=== PATIENT | female | born 1950 | race African-American/Black ===

== ENCOUNTER 2017-12-19 09:35 | Inpatient (IN) ==
[2017-12-19] MEDS ORDERED: SODIUM CHLORIDE 0.9% 250 ML IV STA ×3 (10:00→11:20)
[2017-12-19 10:23] LABS: Basophils % 0.5 % (0.0-0.8); Eosinophils # 0.3 10*3/uL (0.0-0.87); Eosinophils % 5.1 % (0.00-10.9); Hematocrit 28.2 VOL% (35.7-47.0); Hemoglobin 8.7 GM/DL (12.0-16.0); Immature Granulocytes % 0.5 %; Immature Granulocytes Absolute 0.03 #; Lymphocytes # 1.6 10*3/uL (1.4-4.0); Lymphocytes % 24.7 % (21.3-54.2); Mean Corpuscular HGB Conc 30.9 GM/DL (32-36); Mean Corpuscular Hemoglobin 30 PG (27-34); Mean Corpuscular Volume 97.6 FL (87-102); Mean Platelet Volume 11.1 FL (9.6-12.0); Monocytes # 0.5 10*3/uL (0.11-0.8); Monocytes % 8.1 % (1.7-12.7); Neutrophils # 4.1 10*3/uL (1.4-7.4); Neutrophils % 61.1 % (38.7-73.9); Platelet Count 161 T/CUMM (130-400); Red Blood Count 2.89 MC/CUMM (3.8-5.5); Red Cell Distribution Width 14.8 % (9.3-17.3); White Blood Count 6.6 T/CUMM (4-12)
[2017-12-19 10:35] LABS: Ammonia 33 UMOL/L (11-32); INR 1.1; PT Patient Result 11.1 SECS
[2017-12-19 10:39] LABS: Alanine Aminotransferase 14 U/L (13-56); Albumin 2.3 G/DL (3.4-5.0); Alkaline Phosphatase 84 U/L (45-117); Aspartate Amino Transferase 12 U/L (0-37); Bilirubin,Total < 0.39 MG/DL (0.2-1.0); Blood Urea Nitrogen 24 MG/DL (7-18); Calcium 7.8 MG/DL (8.5-10.1); Glucose 177 MG/DL (74-106); Osmolality,Calculated 288.3 MOS/KG (273-304); Potassium 3.4 MMOL/L (3.5-5.1); Sodium 141 MMOL/L (136-145); Total Protein 5.1 G/DL (6.4-8.3)
[2017-12-19 10:40] LABS: Lactic Acid 2.4 MMOL/L (0.4-2.0)
[2017-12-19 10:46] LABS: Partial Thromboplastin Time 62.4 SECS (0-40)
[2017-12-19] MEDS ORDERED: DEXTROSE 50% 25 GM/50 ML VIAL IV PRN (12:41)
[2017-12-19] MEDS ORDERED: GLUCAGON 1 MG VIAL IM PRN (12:41)
[2017-12-19] MEDS ORDERED: ONDANSETRON 4 MG/2 ML VIAL IV PRN (12:41)
[2017-12-19] MEDS ORDERED: DOCUSATE SODIUM 100 MG CAPSULE PO PRN (12:41)
[2017-12-19] MEDS ORDERED: ACETAMINOPHEN 325 MG TABLET PO PRN (12:41)
[2017-12-19] MEDS ORDERED: LORazepam 2 MG/1 ML VIAL IV PRN (12:53)
[2017-12-19] MEDS ORDERED: DOPamine 800 MG/250 ML PREMIX IV PRN (12:54)
[2017-12-19] MEDS ORDERED: POTASSIUM CHLORIDE 20 MEQ TABLET PO ONE (13:00)
[2017-12-19] MEDS ORDERED: EPOETIN ALFA 10,000 UNIT/1 ML VIAL IV PRN (14:33)
[2017-12-19] MEDS: NICOTINE 21 MG/24 HR PATCH TRANSDERM SCH (17:28)
[2017-12-19] MEDS: INSULIN LISPRO 100 UNIT/ML SUBCUT SCH ×2 (17:28→20:23)
[2017-12-20 03:39] LABS: Basophils % 0.2 % (0.0-0.8); Eosinophils # 0.2 10*3/uL (0.0-0.87); Eosinophils % 3.8 % (0.00-10.9); Hematocrit 21.2 VOL% (35.7-47.0); Immature Granulocytes % 0.6 %; Immature Granulocytes Absolute 0.03 #; Lymphocytes # 1.6 10*3/uL (1.4-4.0); Lymphocytes % 30.5 % (21.3-54.2); Mean Corpuscular HGB Conc 30.2 GM/DL (32-36); Mean Corpuscular Hemoglobin 30 PG (27-34); Mean Corpuscular Volume 97.7 FL (87-102); Monocytes # 0.6 10*3/uL (0.11-0.8); Monocytes % 10.7 % (1.7-12.7); Neutrophils # 2.8 10*3/uL (1.4-7.4); Neutrophils % 54.2 % (38.7-73.9); Platelet Count 109 T/CUMM (130-400); Red Blood Count 2.17 MC/CUMM (3.8-5.5); Red Cell Distribution Width 15.1 % (9.3-17.3); White Blood Count 5.2 T/CUMM (4-12)
[2017-12-20 03:53] LABS: Hemoglobin 6.4 GM/DL (12.0-16.0)
[2017-12-20] MEDS ORDERED: SODIUM CHLORIDE 0.9% 1,000 ML IV PRN (03:59)
[2017-12-20 04:14] LABS: Alanine Aminotransferase 12 U/L (13-56); Albumin 2.2 G/DL (3.4-5.0); Alkaline Phosphatase 70 U/L (45-117); Aspartate Amino Transferase 6 U/L (0-37); Bilirubin,Total < 0.39 MG/DL (0.2-1.0); Blood Urea Nitrogen 32 MG/DL (7-18); Calcium 7.7 MG/DL (8.5-10.1); Glucose 77 MG/DL (74-106); Osmolality,Calculated 288.1 MOS/KG (273-304); Sodium 142 MMOL/L (136-145); Thyroid Stimulating Hormone 0.882 uIU/ml (0.358-3.74); Total Protein 4.6 G/DL (6.4-8.3)
[2017-12-20] MEDS: INSULIN LISPRO 100 UNIT/ML SUBCUT SCH ×4 (07:40→20:21)
[2017-12-20] MEDS ORDERED: PANTOPRAZOLE 40 MG TABLET PO SCH (09:00)
[2017-12-20] MEDS: NICOTINE 21 MG/24 HR PATCH TRANSDERM SCH (09:41)
[2017-12-20] MEDS ORDERED: ACETAMINOPHEN 325 MG TABLET PO PRN (10:43)
[2017-12-20] MEDS: LACTULOSE 20 GM/30 ML UDCUP PO SCH (11:02)
[2017-12-20] MEDS: POTASSIUM CHLORIDE 10 MEQ TABLET PO SCH (11:03)
[2017-12-20] MEDS: PANTOPRAZOLE 40 MG TABLET PO SCH (11:03)
[2017-12-20] MEDS: LEVOTHYROXINE 50 MCG TABLET PO SCH (11:03)
[2017-12-20] MEDS: DOCUSATE SODIUM 100 MG CAPSULE PO SCH (11:03)
[2017-12-20] MEDS: ASPIRIN EC 81 MG TABLET PO SCH (11:03)
[2017-12-20] MEDS: ATORVASTATIN 10 MG TABLET PO SCH (11:04)
[2017-12-20] MEDS: FOLIC ACID 1 MG TABLET PO SCH (11:04)
[2017-12-20 19:15] LABS: Hematocrit 24.3 VOL% (35.7-47.0); Hemoglobin 7.9 GM/DL (12.0-16.0)
[2017-12-20] MEDS ORDERED: MIRTAZAPINE 15 MG TABLET PO SCH (20:00)
[2017-12-21 04:31] LABS: Basophils % 0.1 % (0.0-0.8); Eosinophils # 0.1 10*3/uL (0.0-0.87); Eosinophils % 1.3 % (0.00-10.9); Hematocrit 24.3 VOL% (35.7-47.0); Hemoglobin 7.7 GM/DL (12.0-16.0); Immature Granulocytes % 0.5 %; Immature Granulocytes Absolute 0.04 #; Lymphocytes # 1.2 10*3/uL (1.4-4.0); Lymphocytes % 16.1 % (21.3-54.2); Mean Corpuscular HGB Conc 31.7 GM/DL (32-36); Mean Corpuscular Hemoglobin 29 PG (27-34); Mean Corpuscular Volume 92.4 FL (87-102); Mean Platelet Volume 10.6 FL (9.6-12.0); Monocytes # 0.7 10*3/uL (0.11-0.8); Monocytes % 9.2 % (1.7-12.7); Neutrophils # 5.5 10*3/uL (1.4-7.4); Neutrophils % 72.8 % (38.7-73.9); Red Blood Count 2.63 MC/CUMM (3.8-5.5); Red Cell Distribution Width 15.9 % (9.3-17.3); White Blood Count 7.6 T/CUMM (4-12)
[2017-12-21 04:35] LABS: Platelet Count 87 T/CUMM (130-400)
[2017-12-21 04:58] LABS: Hypochromasia 1+; Ovalocytes Slight; Platelet Estimate Decreased
[2017-12-21] MEDS ORDERED: LINACLOTIDE 145 MCG CAPSULE PO SCH (07:30)
[2017-12-21] MEDS ORDERED: DIGOXIN 0.5 MG/2 ML AMP ONE (08:08)
[2017-12-21] MEDS ORDERED: VANCOMYCIN INJ 1,000 MG in SODIUM CHLORIDE 0.9% 250 ML IV ONE (08:20)
[2017-12-21] MEDS ORDERED: DIGOXIN 0.5 MG/2 ML AMP IV ONE (08:20)
[2017-12-21] MEDS ORDERED: NOREPINEPHRINE 8 MG in SODIUM CHLORIDE 0.9% 242 ML IV PRN (08:32)
[2017-12-21] MEDS: INSULIN LISPRO 100 UNIT/ML SUBCUT SCH ×4 (09:07→20:39)
[2017-12-21 09:26] LABS: Calcium 7.4 MG/DL (8.5-10.1); Osmolality,Calculated 279.4 MOS/KG (273-304); Potassium 4.1 MMOL/L (3.5-5.1)
[2017-12-21] MEDS ORDERED: SODIUM CHLORIDE 0.9% 1,000 ML IV SCH (10:30)
[2017-12-21] MEDS: POTASSIUM CHLORIDE 10 MEQ TABLET PO SCH ×2 (11:07→11:18)
[2017-12-21] MEDS: DOCUSATE SODIUM 100 MG CAPSULE PO SCH ×2 (11:07→11:18)
[2017-12-21] MEDS: LEVOTHYROXINE 50 MCG TABLET PO SCH ×2 (11:07→11:19)
[2017-12-21] MEDS: LACTULOSE 20 GM/30 ML UDCUP PO SCH ×2 (11:07→11:18)
[2017-12-21] MEDS: ATORVASTATIN 10 MG TABLET PO SCH ×2 (11:08→11:18)
[2017-12-21] MEDS: FOLIC ACID 1 MG TABLET PO SCH ×2 (11:08→11:18)
[2017-12-21] MEDS: ASPIRIN EC 81 MG TABLET PO SCH ×2 (11:08→11:17)
[2017-12-21] MEDS: PANTOPRAZOLE 40 MG TABLET PO SCH ×2 (11:08→11:18)
[2017-12-21] MEDS: NICOTINE 21 MG/24 HR PATCH TRANSDERM SCH (11:09)
[2017-12-21] MEDS ORDERED: DIGOXIN 0.25 MG TABLET PO SCH (13:00)
[2017-12-21 19:33] LABS: Hematocrit 26.4 VOL% (35.7-47.0); Hemoglobin 8.3 GM/DL (12.0-16.0)
[2017-12-21] MEDS ORDERED: MIRTAZAPINE 15 MG TABLET PO SCH (20:00)
[2017-12-22 04:56] LABS: Basophils % 0.1 % (0.0-0.8); Eosinophils # 0.1 10*3/uL (0.0-0.87); Eosinophils % 0.9 % (0.00-10.9); Hematocrit 23.4 VOL% (35.7-47.0); Hemoglobin 7.5 GM/DL (12.0-16.0); Immature Granulocytes % 0.6 %; Immature Granulocytes Absolute 0.05 #; Lymphocytes # 1.1 10*3/uL (1.4-4.0); Mean Corpuscular HGB Conc 32.1 GM/DL (32-36); Mean Corpuscular Hemoglobin 29 PG (27-34); Mean Corpuscular Volume 90.7 FL (87-102); Mean Platelet Volume 11.1 FL (9.6-12.0); Monocytes # 0.8 10*3/uL (0.11-0.8); Monocytes % 8.9 % (1.7-12.7); Neutrophils # 6.9 10*3/uL (1.4-7.4); Neutrophils % 77.5 % (38.7-73.9); Platelet Count 78 T/CUMM (130-400); Red Blood Count 2.58 MC/CUMM (3.8-5.5); Red Cell Distribution Width 16.6 % (9.3-17.3); White Blood Count 8.9 T/CUMM (4-12)
[2017-12-22 05:29] LABS: Bilirubin,Total 1.2 MG/DL (0.2-1.0); Osmolality,Calculated 282.5 MOS/KG (273-304); Potassium 4.4 MMOL/L (3.5-5.1); Total Protein 4.9 G/DL (6.4-8.3)
[2017-12-22 05:34] LABS: Hypochromasia 1+; Ovalocytes Slight; Platelet Estimate Decreased
[2017-12-22] MEDS: INSULIN LISPRO 100 UNIT/ML SUBCUT SCH ×4 (09:32→21:08)
[2017-12-22] MEDS: FOLIC ACID 1 MG TABLET PO SCH (10:08)
[2017-12-22] MEDS: POTASSIUM CHLORIDE 10 MEQ TABLET PO SCH (10:08)
[2017-12-22] MEDS: ASPIRIN EC 81 MG TABLET PO SCH (10:08)
[2017-12-22] MEDS: ATORVASTATIN 10 MG TABLET PO SCH (10:09)
[2017-12-22] MEDS: NICOTINE 21 MG/24 HR PATCH TRANSDERM SCH (10:09)
[2017-12-22] MEDS: LEVOTHYROXINE 50 MCG TABLET PO SCH (10:09)
[2017-12-22] MEDS: DOCUSATE SODIUM 100 MG CAPSULE PO SCH (10:10)
[2017-12-22] MEDS: PANTOPRAZOLE 40 MG TABLET PO SCH (10:10)
[2017-12-22] MEDS: LACTULOSE 20 GM/30 ML UDCUP PO SCH (10:10)
[2017-12-22] MEDS ORDERED: LEVOFLOXACIN 250 MG TABLET PO SCH (10:30)
[2017-12-22] MEDS: VANCOMYCIN 50 MG/ML 60 ML/BOTTLE PO SCH (17:41)
[2017-12-23] MEDS: VANCOMYCIN 50 MG/ML 60 ML/BOTTLE PO SCH ×4 (00:20→17:21)
[2017-12-23 05:44] LABS: Basophils % 0.1 % (0.0-0.8); Eosinophils # 0.1 10*3/uL (0.0-0.87); Eosinophils % 1.7 % (0.00-10.9); Hematocrit 24.3 VOL% (35.7-47.0); Hemoglobin 7.7 GM/DL (12.0-16.0); Immature Granulocytes % 0.4 %; Immature Granulocytes Absolute 0.03 #; Lymphocytes # 1.1 10*3/uL (1.4-4.0); Lymphocytes % 13.9 % (21.3-54.2); Mean Corpuscular HGB Conc 31.7 GM/DL (32-36); Mean Corpuscular Hemoglobin 29 PG (27-34); Mean Corpuscular Volume 91.7 FL (87-102); Mean Platelet Volume 11.4 FL (9.6-12.0); Monocytes # 0.6 10*3/uL (0.11-0.8); Monocytes % 7.7 % (1.7-12.7); Neutrophils % 76.2 % (38.7-73.9); Platelet Count 87 T/CUMM (130-400); Red Blood Count 2.65 MC/CUMM (3.8-5.5); White Blood Count 7.8 T/CUMM (4-12)
[2017-12-23 06:12] LABS: Hypochromasia Slight; Platelet Estimate Decreased
[2017-12-23 06:17] LABS: Calcium 7.3 MG/DL (8.5-10.1); Osmolality,Calculated 285.7 MOS/KG (273-304); Potassium 4.9 MMOL/L (3.5-5.1)
[2017-12-23] MEDS: LACTULOSE 20 GM/30 ML UDCUP PO SCH (08:12)
[2017-12-23] MEDS: DOCUSATE SODIUM 100 MG CAPSULE PO SCH (08:12)
[2017-12-23] MEDS: INSULIN LISPRO 100 UNIT/ML SUBCUT SCH ×3 (08:12→15:51)
[2017-12-23] MEDS: ATORVASTATIN 10 MG TABLET PO SCH (08:43)
[2017-12-23] MEDS: NICOTINE 21 MG/24 HR PATCH TRANSDERM SCH (08:43)
[2017-12-23] MEDS: POTASSIUM CHLORIDE 10 MEQ TABLET PO SCH (08:43)
[2017-12-23] MEDS: ASPIRIN EC 81 MG TABLET PO SCH (08:44)
[2017-12-23] MEDS: FOLIC ACID 1 MG TABLET PO SCH (08:44)
[2017-12-23] MEDS: LEVOTHYROXINE 50 MCG TABLET PO SCH (08:44)
[2017-12-23] MEDS: PANTOPRAZOLE 40 MG TABLET PO SCH (08:44)
[2017-12-23] MEDS ORDERED: DIGOXIN 0.125 MG TABLET PO SCH (10:00)
[2017-12-24] MEDS: INSULIN LISPRO 100 UNIT/ML SUBCUT SCH ×4 (00:27→16:08)
[2017-12-24] MEDS: VANCOMYCIN 50 MG/ML 60 ML/BOTTLE PO SCH ×4 (04:44→16:24)
[2017-12-24 05:27] LABS: Basophils % 0.2 % (0.0-0.8); Eosinophils # 0.2 10*3/uL (0.0-0.87); Hematocrit 21.6 VOL% (35.7-47.0); Hemoglobin 6.9 GM/DL (12.0-16.0); Immature Granulocytes % 0.6 %; Immature Granulocytes Absolute 0.03 #; Lymphocytes # 0.9 10*3/uL (1.4-4.0); Lymphocytes % 16.3 % (21.3-54.2); Mean Corpuscular HGB Conc 31.9 GM/DL (32-36); Mean Corpuscular Hemoglobin 29 PG (27-34); Mean Corpuscular Volume 91.9 FL (87-102); Mean Platelet Volume 11.9 FL (9.6-12.0); Monocytes # 0.4 10*3/uL (0.11-0.8); Neutrophils # 3.9 10*3/uL (1.4-7.4); Neutrophils % 72.9 % (38.7-73.9); Red Blood Count 2.35 MC/CUMM (3.8-5.5); Red Cell Distribution Width 15.7 % (9.3-17.3); White Blood Count 5.3 T/CUMM (4-12)
[2017-12-24 05:30] LABS: Platelet Count 91 T/CUMM (130-400)
[2017-12-24 05:45] LABS: Hypochromasia 1+; Microcytosis 1+; Ovalocytes Few; Platelet Estimate Decreased
[2017-12-24 05:46] LABS: Anisocytosis 1+
[2017-12-24 05:53] LABS: Calcium 7.3 MG/DL (8.5-10.1); Osmolality,Calculated 289.7 MOS/KG (273-304); Potassium 4.4 MMOL/L (3.5-5.1)
[2017-12-24] MEDS ORDERED: HEPARIN 5,000 UNIT/1 ML VIAL ONE (07:42)
[2017-12-24] MEDS ORDERED: LIDOCAINE 1% 20 ML VIAL ONE (07:42)
[2017-12-24] MEDS ORDERED: BUPIVACAINE MPF 0.25% 30 ML VIAL ONE (07:42)
[2017-12-24] MEDS: FOLIC ACID 1 MG TABLET PO SCH (08:18)
[2017-12-24] MEDS: LEVOTHYROXINE 50 MCG TABLET PO SCH (08:18)
[2017-12-24] MEDS: NICOTINE 21 MG/24 HR PATCH TRANSDERM SCH (08:18)
[2017-12-24] MEDS: PANTOPRAZOLE 40 MG TABLET PO SCH (08:18)
[2017-12-24] MEDS: ATORVASTATIN 10 MG TABLET PO SCH (08:18)
[2017-12-24] MEDS: POTASSIUM CHLORIDE 10 MEQ TABLET PO SCH (08:18)
[2017-12-24] MEDS: ASPIRIN EC 81 MG TABLET PO SCH (08:18)
[2017-12-24] MEDS ORDERED: SODIUM CHLORIDE 0.9% 250 ML IV SCH (08:30)
[2017-12-24 09:04] LABS: Hematocrit 22.2 VOL% (35.7-47.0); Hemoglobin 7.2 GM/DL (12.0-16.0)
[2017-12-24] MEDS ORDERED: PROPOFOL 200 MG/20 ML VIAL IV ONE (09:10)
[2017-12-24 11:53] VITALS: BP 154/89
[2017-12-24] MEDS ORDERED: HEPARIN 10,000 UNIT/10 ML VIAL IV PRN (15:13)
[2017-12-24 17:55] LABS: Hematocrit 36.3 VOL% (35.7-47.0); Hemoglobin 11.6 GM/DL (12.0-16.0)
== END 2017-12-24 18:25 | DRG 312 ==
LOC: EDUNIT# → EDBD → N.ED 09:35 → N.EDINP 12:41 → SUATTDRO 12:41 → N.ICU 13:26 → N.5E 12-20 10:34 → N.ICU 12-21 08:17 → N.5E 12-22 13:29
PROVIDERS: ADMIT Family Medicine; ATTEND Internal Medicine

== ENCOUNTER 2020-05-12 18:27 | Inpatient (IN) ==
[2020-05-12 19:28] LABS: Eosinophils # 0.5 10*3/uL (0.0-0.87); Eosinophils % 10.2 % (0.00-10.9); Hematocrit 18.4 VOL% (35.7-47.0); Immature Granulocytes % 0.2 %; Immature Granulocytes Absolute 0.01 #; Lymphocytes # 1.3 10*3/uL (1.4-4.0); Lymphocytes % 27.9 % (21.3-54.2); Mean Corpuscular HGB Conc 31.5 GM/DL (32-36); Mean Corpuscular Volume 96.3 FL (87-102); Mean Platelet Volume 11.1 FL (9.6-12.0); Monocytes % 7.1 % (1.7-12.7); Neutrophils % 54.6 % (38.7-73.9); Platelet Count 170 T/CUMM (130-400); Red Blood Count 1.91 MC/CUMM (3.8-5.5); Red Cell Distribution Width 14.5 % (9.3-17.3); White Blood Count 4.6 T/CUMM (4-12)
[2020-05-12 19:51] LABS: Albumin 2.5 G/DL (3.4-5.0); Bilirubin,Total 0.4 MG/DL (0.2-1.0); Calcium 8.1 MG/DL (8.5-10.1); Osmolality,Calculated 289.1 MOS/KG (273-304); Total Protein 5.9 G/DL (5.0-7.5)
[2020-05-12 20:17] LABS: Hemoglobin 5.8 GM/DL (12.0-16.0)
[2020-05-12] MEDS ORDERED: hydrALAZINE 20 MG/1 ML VIAL IV STA (20:20)
[2020-05-12] MEDS ORDERED: hydrALAZINE 20 MG/1 ML VIAL ONE (20:21)
[2020-05-12 21:06] LABS: Eosinophils 4 % (0-10); Lymphocytes 26 % (20-55); Segmented Neutrophils 68 % (50-85); Total Cells Counted 100
[2020-05-12 21:07] LABS: Platelet Estimate Adequate
[2020-05-12 21:08] LABS: Hypochromasia Slight
[2020-05-12 21:09] LABS: Anisocytosis 1+; Ovalocytes Few
[2020-05-12] MEDS ORDERED: LABETALOL 20 MG/4 ML SYRINGE IV ONE ×2 (22:35→22:40)
[2020-05-12] MEDS ORDERED: SODIUM CHLORIDE 0.9% 1,000 ML IV PRN (22:49)
[2020-05-12] MEDS ORDERED: DEXTROSE 50% 25 GM/50 ML VIAL IV PRN (22:53)
[2020-05-12] MEDS ORDERED: GLUCAGON 1 MG VIAL IM PRN (22:53)
[2020-05-12] MEDS ORDERED: hydrALAZINE 20 MG/1 ML VIAL IV PRN (22:58)
[2020-05-12] MEDS ORDERED: DOCUSATE SODIUM 100 MG CAPSULE PO PRN (22:58)
[2020-05-12] MEDS ORDERED: ONDANSETRON 4 MG/2 ML VIAL IV PRN (22:58)
[2020-05-13] MEDS: LEVOTHYROXINE 50 MCG TABLET PO SCH (05:59)
[2020-05-13 06:01] LABS: Basophils % 0.3 % (0.0-0.8); Eosinophils # 0.5 10*3/uL (0.0-0.87); Eosinophils % 7.9 % (0.00-10.9); Immature Granulocytes % 0.3 %; Immature Granulocytes Absolute 0.02 #; Lymphocytes # 1.7 10*3/uL (1.4-4.0); Lymphocytes % 28.8 % (21.3-54.2); Mean Corpuscular HGB Conc 31.3 GM/DL (32-36); Mean Corpuscular Volume 93.9 FL (87-102); Mean Platelet Volume 11.4 FL (9.6-12.0); Monocytes % 8.9 % (1.7-12.7); Neutrophils % 53.8 % (38.7-73.9); Platelet Count 164 T/CUMM (130-400); Red Cell Distribution Width 15.8 % (9.3-17.3)
[2020-05-13 06:12] LABS: Hemoglobin 7.2 GM/DL (12.0-16.0); Red Blood Count 2.45 MC/CUMM (3.8-5.5)
[2020-05-13 06:14] LABS: Albumin 2.3 G/DL (3.4-5.0); Bilirubin,Total 1.4 MG/DL (0.2-1.0); Osmolality,Calculated 290.1 MOS/KG (273-304); Potassium 3.6 MMOL/L (3.5-5.1); Total Protein 5.5 G/DL (5.0-7.5)
[2020-05-13] MEDS ORDERED: POTASSIUM CHLORIDE RIDER 10 MEQ in PREMIX 1 EACH IV PRN (08:49)
[2020-05-13] MEDS: PANTOPRAZOLE 40 MG VIAL IV SCH ×2 (08:52→20:50)
[2020-05-13] MEDS: ATORVASTATIN 10 MG TABLET PO SCH (08:52)
[2020-05-13] MEDS: MULTIVITAMIN (BEROCCA) TABLET PO SCH (08:52)
[2020-05-13] MEDS: levETIRAcetam 500 MG TABLET PO SCH (08:52)
[2020-05-13] MEDS: FOLIC ACID 1 MG TABLET PO SCH (08:53)
[2020-05-13] MEDS: carvediloL 6.25 MG TABLET PO SCH ×2 (08:53→19:01)
[2020-05-13] MEDS: MEGESTROL 400 MG/10 ML UDCUP PO SCH ×2 (08:53→20:50)
[2020-05-13] MEDS: traZODone 50 MG TABLET PO SCH ×2 (08:53→20:51)
[2020-05-13] MEDS: INSULIN LISPRO 100 UNIT/ML SUBCUT SCH ×4 (08:54→21:04)
[2020-05-13] MEDS ORDERED: SODIUM CHLORIDE 0.9% 1,000 ML IV SCH (12:00)
[2020-05-13] MEDS ORDERED: LIDOCAINE 2% 5 ML VIAL ONE (13:05)
[2020-05-13] MEDS ORDERED: ETOMIDATE 20 MG/10 ML VIAL IV ONE (13:05)
[2020-05-13] MEDS ORDERED: POTASSIUM PHOS/SOD PHOS 250 MG TABLET PO SCH (17:00)
[2020-05-13 17:20] LABS: Hepatitis B Core IgM Quant < 0.05 Index; Hepatitis B Surface Ag Quant < 0.10 Index; Hepatitis B Surface Ag Result Non-Reactive (NonReactive); Hepatitis C Virus Ab Quant 0.04 Index; Hepatitis C Virus Ab Result Non-Reactive (NonReactive)
[2020-05-13] MEDS: DIGOXIN 0.125 MG TABLET PO SCH (19:01)
[2020-05-13] MEDS: MIRTAZAPINE 15 MG TABLET PO SCH (20:50)
[2020-05-13] MEDS: levETIRAcetam 250 MG TABLET PO SCH (20:51)
[2020-05-13] MEDS: LOSARTAN 50 MG TABLET PO SCH (20:52)
[2020-05-14] MEDS: LEVOTHYROXINE 50 MCG TABLET PO SCH (06:14)
[2020-05-14 06:24] LABS: Basophils % 0.2 % (0.0-0.8); Eosinophils # 0.3 10*3/uL (0.0-0.87); Eosinophils % 5.9 % (0.00-10.9); Hematocrit 19.6 VOL% (35.7-47.0); Immature Granulocytes % 0.2 %; Immature Granulocytes Absolute 0.01 #; Lymphocytes # 1.1 10*3/uL (1.4-4.0); Lymphocytes % 26.4 % (21.3-54.2); Mean Corpuscular HGB Conc 32.1 GM/DL (32-36); Mean Corpuscular Volume 91.6 FL (87-102); Monocytes % 8.5 % (1.7-12.7); Neutrophils % 58.8 % (38.7-73.9); Platelet Count 109 T/CUMM (130-400); Red Blood Count 2.14 MC/CUMM (3.8-5.5); Red Cell Distribution Width 15.9 % (9.3-17.3); White Blood Count 4.3 T/CUMM (4-12)
[2020-05-14 06:32] LABS: Hemoglobin 6.3 GM/DL (12.0-16.0)
[2020-05-14] MEDS ORDERED: SODIUM CHLORIDE 0.9% 1,000 ML IV PRN ×2 (06:40→09:55)
[2020-05-14 07:03] LABS: Platelet Estimate Adequate; Poikilocytosis Slight
[2020-05-14 07:04] LABS: Anisocytosis 2+; Burr Cells Few
[2020-05-14 07:12] LABS: Albumin 2.1 G/DL (3.4-5.0); Bilirubin,Total 0.7 MG/DL (0.2-1.0); Osmolality,Calculated 281.5 MOS/KG (273-304); Potassium 3.4 MMOL/L (3.5-5.1); Total Protein 5.1 G/DL (5.0-7.5)
[2020-05-14] MEDS: INSULIN LISPRO 100 UNIT/ML SUBCUT SCH ×4 (08:50→20:03)
[2020-05-14] MEDS: PANTOPRAZOLE 40 MG VIAL IV SCH ×2 (09:01→20:02)
[2020-05-14] MEDS: FOLIC ACID 1 MG TABLET PO SCH (09:02)
[2020-05-14] MEDS: levETIRAcetam 500 MG TABLET PO SCH (09:02)
[2020-05-14] MEDS: traZODone 50 MG TABLET PO SCH ×2 (09:02→20:03)
[2020-05-14] MEDS: ATORVASTATIN 10 MG TABLET PO SCH (09:02)
[2020-05-14] MEDS: MEGESTROL 400 MG/10 ML UDCUP PO SCH ×2 (09:02→20:02)
[2020-05-14] MEDS: MULTIVITAMIN (BEROCCA) TABLET PO SCH (09:02)
[2020-05-14] MEDS: carvediloL 6.25 MG TABLET PO SCH ×2 (09:02→16:00)
[2020-05-14 15:35] LABS: Hematocrit 24.4 VOL% (35.7-47.0); Hemoglobin 7.8 GM/DL (12.0-16.0)
[2020-05-14] MEDS: LOSARTAN 50 MG TABLET PO SCH (20:02)
[2020-05-14] MEDS: levETIRAcetam 250 MG TABLET PO SCH (20:02)
[2020-05-14] MEDS: MIRTAZAPINE 15 MG TABLET PO SCH (20:03)
[2020-05-15] MEDS: LEVOTHYROXINE 50 MCG TABLET PO SCH (05:20)
[2020-05-15 06:02] LABS: Basophils % 0.2 % (0.0-0.8); Eosinophils # 0.3 10*3/uL (0.0-0.87); Eosinophils % 6.2 % (0.00-10.9); Hematocrit 23.3 VOL% (35.7-47.0); Hemoglobin 7.6 GM/DL (12.0-16.0); Immature Granulocytes % 0.5 %; Immature Granulocytes Absolute 0.02 #; Lymphocytes # 0.9 10*3/uL (1.4-4.0); Lymphocytes % 22.7 % (21.3-54.2); Mean Corpuscular HGB Conc 32.6 GM/DL (32-36); Mean Corpuscular Volume 92.1 FL (87-102); Mean Platelet Volume 11.4 FL (9.6-12.0); Monocytes % 10.1 % (1.7-12.7); Neutrophils % 60.3 % (38.7-73.9); Platelet Count 126 T/CUMM (130-400); Red Blood Count 2.53 MC/CUMM (3.8-5.5); Red Cell Distribution Width 15.6 % (9.3-17.3); White Blood Count 4.1 T/CUMM (4-12)
[2020-05-15 06:20] LABS: Calcium 7.7 MG/DL (8.5-10.1); Osmolality,Calculated 287.3 MOS/KG (273-304); Potassium 3.4 MMOL/L (3.5-5.1)
[2020-05-15] MEDS: INSULIN LISPRO 100 UNIT/ML SUBCUT SCH ×4 (08:38→20:55)
[2020-05-15] MEDS: MEGESTROL 400 MG/10 ML UDCUP PO SCH ×2 (08:39→20:58)
[2020-05-15] MEDS: FOLIC ACID 1 MG TABLET PO SCH (08:39)
[2020-05-15] MEDS: MULTIVITAMIN (BEROCCA) TABLET PO SCH (08:39)
[2020-05-15] MEDS: PANTOPRAZOLE 40 MG VIAL IV SCH ×2 (08:40→20:56)
[2020-05-15] MEDS: ATORVASTATIN 10 MG TABLET PO SCH (08:40)
[2020-05-15] MEDS: carvediloL 6.25 MG TABLET PO SCH ×2 (08:40→17:28)
[2020-05-15] MEDS: levETIRAcetam 500 MG TABLET PO SCH (08:40)
[2020-05-15] MEDS: traZODone 50 MG TABLET PO SCH ×2 (08:40→20:55)
[2020-05-15] MEDS ORDERED: POLYETHYLENE GLYCOL 3350/ELECTROLYTES 4,000 ML BOTTLE PO ONE (18:00)
[2020-05-15] MEDS: LOSARTAN 50 MG TABLET PO SCH (20:55)
[2020-05-15] MEDS: MIRTAZAPINE 15 MG TABLET PO SCH (20:55)
[2020-05-15] MEDS: levETIRAcetam 250 MG TABLET PO SCH (20:55)
[2020-05-15] MEDS ORDERED: MAGNESIUM CITRATE 300 ML BOTTLE PO ONE (21:00)
[2020-05-16] MEDS: ACETAMINOPHEN 325 MG TABLET PO PRN (04:15)
[2020-05-16 06:19] LABS: Eosinophils # 0.1 10*3/uL (0.0-0.87); Eosinophils % 2.9 % (0.00-10.9); Hematocrit 25.2 VOL% (35.7-47.0); Hemoglobin 8.4 GM/DL (12.0-16.0); Immature Granulocytes % 0.2 %; Immature Granulocytes Absolute 0.01 #; Lymphocytes # 0.5 10*3/uL (1.4-4.0); Lymphocytes % 11.9 % (21.3-54.2); Mean Corpuscular HGB Conc 33.3 GM/DL (32-36); Mean Corpuscular Volume 90.6 FL (87-102); Mean Platelet Volume 10.8 FL (9.6-12.0); Monocytes % 9.7 % (1.7-12.7); Neutrophils % 75.3 % (38.7-73.9); Platelet Count 119 T/CUMM (130-400); Red Blood Count 2.78 MC/CUMM (3.8-5.5); Red Cell Distribution Width 15.2 % (9.3-17.3); White Blood Count 4.1 T/CUMM (4-12)
[2020-05-16 06:39] LABS: Hypochromasia 1+; Microcytosis 1+; Platelet Estimate Decreased
[2020-05-16 06:43] LABS: Calcium 7.6 MG/DL (8.5-10.1); Osmolality,Calculated 281.8 MOS/KG (273-304); Potassium 3.5 MMOL/L (3.5-5.1)
[2020-05-16] MEDS: LEVOTHYROXINE 50 MCG TABLET PO SCH (06:48)
[2020-05-16] MEDS: INSULIN LISPRO 100 UNIT/ML SUBCUT SCH ×4 (06:54→22:28)
[2020-05-16] MEDS: SODIUM CHLORIDE 0.9% 1,000 ML IV SCH (07:32)
[2020-05-16] MEDS ORDERED: propofoL 200 MG/20 ML VIAL IV ONE (08:31)
[2020-05-16] MEDS ORDERED: LIDOCAINE 2% 5 ML VIAL ONE (08:31)
[2020-05-16] MEDS: carvediloL 6.25 MG TABLET PO SCH ×2 (14:34→17:48)
[2020-05-16] MEDS: MEGESTROL 400 MG/10 ML UDCUP PO SCH ×2 (14:35→23:28)
[2020-05-16] MEDS: traZODone 50 MG TABLET PO SCH ×2 (14:37→22:27)
[2020-05-16] MEDS: PANTOPRAZOLE 40 MG VIAL IV SCH ×2 (15:03→22:28)
[2020-05-16] MEDS: levETIRAcetam 500 MG TABLET PO SCH (15:06)
[2020-05-16] MEDS: ATORVASTATIN 10 MG TABLET PO SCH (15:06)
[2020-05-16] MEDS: MULTIVITAMIN (BEROCCA) TABLET PO SCH (15:07)
[2020-05-16] MEDS: FOLIC ACID 1 MG TABLET PO SCH (15:07)
[2020-05-16] MEDS ORDERED: ACETAMINOPHEN 650 MG SUPP RECTAL PRN (17:32)
[2020-05-16] MEDS: LOSARTAN 50 MG TABLET PO SCH (22:27)
[2020-05-16] MEDS ORDERED: ADENOSINE 6 MG/2 ML VIAL ONE (22:45)
[2020-05-16] MEDS ORDERED: ADENOSINE 6 MG/2 ML VIAL IV ONE (23:00)
[2020-05-16] MEDS ORDERED: METOPROLOL TARTRATE 5 MG/5 ML VIAL IV ONE ×3 (23:02→23:13)
[2020-05-16] MEDS ORDERED: SODIUM CHLORIDE 0.9% 250 ML IV ONE (23:15)
[2020-05-16 23:17] LABS: ABG Base Excess 1.2 MMOL/L (-2.5-2.5); ABG HCO3 25.5 MMOL/L (20-26); ABG PCO2 25.7 MM HG (35-48); ABG PH 7.555 (7.35-7.45); ABG TCO2 20.9 MMOL/L (23-27); Allen Test Positive
[2020-05-16] MEDS: MIRTAZAPINE 15 MG TABLET PO SCH (23:28)
[2020-05-16] MEDS: levETIRAcetam 250 MG TABLET PO SCH (23:28)
[2020-05-16 23:29] LABS: Basophils % 0.2 % (0.0-0.8); Eosinophils % 0.2 % (0.00-10.9); Hematocrit 29.4 VOL% (35.7-47.0); Hemoglobin 9.7 GM/DL (12.0-16.0); Immature Granulocytes % 0.5 %; Immature Granulocytes Absolute 0.03 #; Lymphocytes # 0.4 10*3/uL (1.4-4.0); Lymphocytes % 6.4 % (21.3-54.2); Mean Corpuscular Volume 90.7 FL (87-102); Mean Platelet Volume 10.7 FL (9.6-12.0); Monocytes % 4.7 % (1.7-12.7); Platelet Count 114 T/CUMM (130-400); Red Blood Count 3.24 MC/CUMM (3.8-5.5); Red Cell Distribution Width 15.3 % (9.3-17.3); White Blood Count 5.9 T/CUMM (4-12)
[2020-05-16] MEDS ORDERED: VANCOMYCIN INJ 1,000 MG in SODIUM CHLORIDE 0.9% 250 ML IV ONE (23:30)
[2020-05-16] MEDS ORDERED: ACETAMINOPHEN 650 MG SUPP RECTAL ONE (23:32)
[2020-05-16] MEDS ORDERED: VANCOMYCIN INJ 500 MG in SODIUM CHLORIDE 0.9% 100 ML IV PRN (23:32)
[2020-05-16] MEDS ORDERED: LABETALOL 20 MG/4 ML SYRINGE IV ONE (23:32)
[2020-05-16 23:44] LABS: Alanine Aminotransferase 23 U/L (13-56); Albumin 2.3 G/DL (3.4-5.0); Alkaline Phosphatase 92 U/L (45-117); Aspartate Amino Transferase 26 U/L (0-37); Blood Urea Nitrogen 18 MG/DL (7-18); Calcium 8.2 MG/DL (8.5-10.1); Carbon Dioxide 22 MMOL/L (21-32); Estimated Glom Filtration Rate 10 ML/MIN; Glucose 93 MG/DL (74-106); Osmolality,Calculated 276.7 MOS/KG (273-304); Potassium 3.7 MMOL/L (3.5-5.1); Sodium 138 MMOL/L (136-145); Total Protein 5.9 G/DL (5.0-7.5); Troponin I 0.018 NG/ML (0.00-0.045)
[2020-05-17] MEDS ORDERED: LABETALOL 20 MG/4 ML SYRINGE IV ONE (00:12)
[2020-05-17] MEDS ORDERED: LABETALOL INJ 200 MG in SODIUM CHLORIDE 0.9% 160 ML IV SCH (00:30)
[2020-05-17 01:36] LABS: Atypical Lymphocytes Few; Microcytosis 1+; Ovalocytes Few
[2020-05-17 01:38] LABS: Acanthocytes Few; Burr Cells Few; Platelet Estimate Adequate; Schistocytes Few
[2020-05-17 04:46] LABS: Basophils % 0.1 % (0.0-0.8); Hemoglobin 8.4 GM/DL (12.0-16.0); Immature Granulocytes % 0.6 %; Immature Granulocytes Absolute 0.04 #; Lymphocytes # 0.5 10*3/uL (1.4-4.0); Lymphocytes % 6.6 % (21.3-54.2); Mean Corpuscular HGB Conc 32.3 GM/DL (32-36); Mean Corpuscular Volume 92.2 FL (87-102); Neutrophils % 84.7 % (38.7-73.9); Platelet Count 111 T/CUMM (130-400); Red Blood Count 2.82 MC/CUMM (3.8-5.5); Red Cell Distribution Width 15.2 % (9.3-17.3); White Blood Count 7.2 T/CUMM (4-12)
[2020-05-17 05:09] LABS: Calcium 7.8 MG/DL (8.5-10.1); Osmolality,Calculated 281.4 MOS/KG (273-304); Potassium 3.5 MMOL/L (3.5-5.1)
[2020-05-17 05:19] LABS: Band Neutrophils 7 % (0-10); Hypochromasia Slight; Lymphocytes 8 % (20-55); Metamyelocytes 1 %; Microcytosis 1+; Platelet Estimate Decreased; Segmented Neutrophils 79 % (50-85); Total Cells Counted 100
[2020-05-17] MEDS: SODIUM CHLORIDE 0.9% 1,000 ML IV SCH (08:28)
[2020-05-17] MEDS: INSULIN LISPRO 100 UNIT/ML SUBCUT SCH ×4 (08:28→21:16)
[2020-05-17] MEDS: MULTIVITAMIN (BEROCCA) TABLET PO SCH (09:31)
[2020-05-17] MEDS: LEVOTHYROXINE 50 MCG TABLET PO SCH (09:31)
[2020-05-17] MEDS: carvediloL 6.25 MG TABLET PO SCH ×2 (09:31→16:02)
[2020-05-17] MEDS: MEGESTROL 400 MG/10 ML UDCUP PO SCH ×2 (09:32→21:05)
[2020-05-17] MEDS: FOLIC ACID 1 MG TABLET PO SCH (09:32)
[2020-05-17] MEDS: levETIRAcetam 500 MG TABLET PO SCH (09:32)
[2020-05-17] MEDS: traZODone 50 MG TABLET PO SCH ×2 (09:32→21:16)
[2020-05-17] MEDS: PANTOPRAZOLE 40 MG VIAL IV SCH ×2 (09:32→21:05)
[2020-05-17] MEDS: ATORVASTATIN 10 MG TABLET PO SCH (09:34)
[2020-05-17] MEDS: DIGOXIN 0.125 MG TABLET PO SCH (13:07)
[2020-05-17] MEDS: LOSARTAN 50 MG TABLET PO SCH (21:05)
[2020-05-17] MEDS: levETIRAcetam 250 MG TABLET PO SCH (21:05)
[2020-05-17] MEDS: MIRTAZAPINE 15 MG TABLET PO SCH (21:05)
[2020-05-17] MEDS ORDERED: VANCOMYCIN INJ 500 MG in SODIUM CHLORIDE 0.9% 100 ML IV SCH (23:00)
[2020-05-17] MEDS ORDERED: SODIUM CHLORIDE 0.9% 250 ML IV ONE (23:15)
[2020-05-18 05:21] LABS: Basophils % 0.2 % (0.0-0.8); Eosinophils # 0.1 10*3/uL (0.0-0.87); Eosinophils % 1.9 % (0.00-10.9); Hematocrit 22.1 VOL% (35.7-47.0); Hemoglobin 7.1 GM/DL (12.0-16.0); Immature Granulocytes % 0.8 %; Immature Granulocytes Absolute 0.05 #; Lymphocytes % 15.7 % (21.3-54.2); Mean Corpuscular HGB Conc 32.1 GM/DL (32-36); Mean Corpuscular Volume 92.9 FL (87-102); Mean Platelet Volume 11.5 FL (9.6-12.0); Monocytes % 15.3 % (1.7-12.7); Neutrophils % 66.1 % (38.7-73.9); Platelet Count 90 T/CUMM (130-400); Red Blood Count 2.38 MC/CUMM (3.8-5.5); Red Cell Distribution Width 15.4 % (9.3-17.3); White Blood Count 6.5 T/CUMM (4-12)
[2020-05-18 05:26] LABS: Calcium 7.8 MG/DL (8.5-10.1); Osmolality,Calculated 280.7 MOS/KG (273-304); Potassium 3.8 MMOL/L (3.5-5.1)
[2020-05-18 05:30] LABS: Band Neutrophils 2 % (0-10); Lymphocytes 9 % (20-55); Segmented Neutrophils 76 % (50-85); Total Cells Counted 100
[2020-05-18 05:31] LABS: Microcytosis 1+; Ovalocytes Slight
[2020-05-18 05:32] LABS: Hypochromasia 1+; Platelet Estimate Decreased
[2020-05-18] MEDS: LEVOTHYROXINE 50 MCG TABLET PO SCH (05:48)
[2020-05-18] MEDS ORDERED: SODIUM CHLORIDE 0.9% 1,000 ML IV PRN ×2 (06:29→09:31)
[2020-05-18] MEDS: INSULIN LISPRO 100 UNIT/ML SUBCUT SCH ×4 (07:42→20:02)
[2020-05-18] MEDS: MULTIVITAMIN (BEROCCA) TABLET PO SCH (08:26)
[2020-05-18] MEDS: carvediloL 6.25 MG TABLET PO SCH ×2 (08:26→16:22)
[2020-05-18] MEDS: traZODone 50 MG TABLET PO SCH ×2 (08:26→20:02)
[2020-05-18] MEDS: FOLIC ACID 1 MG TABLET PO SCH (08:26)
[2020-05-18] MEDS: ATORVASTATIN 10 MG TABLET PO SCH (08:27)
[2020-05-18] MEDS: PANTOPRAZOLE 40 MG VIAL IV SCH ×2 (08:27→20:02)
[2020-05-18] MEDS: MEGESTROL 400 MG/10 ML UDCUP PO SCH ×2 (08:27→20:02)
[2020-05-18] MEDS: levETIRAcetam 500 MG TABLET PO SCH (08:27)
[2020-05-18] MEDS ORDERED: MIDAZOLAM 2 MG/2 ML VIAL IV ONE (09:00)
[2020-05-18] MEDS: PHENYLEPHRINE DRIP 40 MG/250 ML PREMIX IV PRN ×2 (09:00→11:31)
[2020-05-18] MEDS ORDERED: PHENYLEPHRINE DRIP 40 MG/250 ML PREMIX IV ONE (09:18)
[2020-05-18] MEDS: MIDAZOLAM 100 MG in SODIUM CHLORIDE 0.9% 80 ML IV PRN (10:45)
[2020-05-18] MEDS: NOREPINEPHRINE 16 MG in SODIUM CHLORIDE 0.9% 234 ML IV PRN (11:00)
[2020-05-18] MEDS: SODIUM CHLORIDE 0.9% 1,000 ML IV SCH (11:45)
[2020-05-18 11:50] LABS: Hematocrit 25.7 VOL% (35.7-47.0)
[2020-05-18 11:56] LABS: Hemoglobin 8.7 GM/DL (12.0-16.0)
[2020-05-18] MEDS ORDERED: VANCOMYCIN INJ 500 MG in SODIUM CHLORIDE 0.9% 100 ML IV ONE (12:00)
[2020-05-18] MEDS ORDERED: RIFAMPIN INJ 600 MG in SODIUM CHLORIDE 0.9% 100 ML IV SCH (12:30)
[2020-05-18 12:57] LABS: ABG Base Excess 1.3 MMOL/L (-2.5-2.5); ABG HCO3 25.6 MMOL/L (20-26); ABG PH 7.498 (7.35-7.45); ABG TCO2 22.2 MMOL/L (23-27); Allen Test Positive; Pt O2 Delivery Device Ventilator
[2020-05-18] MEDS: LOSARTAN 50 MG TABLET PO SCH (20:01)
[2020-05-18] MEDS: levETIRAcetam 250 MG TABLET PO SCH (20:02)
[2020-05-18] MEDS: MIRTAZAPINE 15 MG TABLET PO SCH (20:02)
[2020-05-18] MEDS ORDERED: METOPROLOL TARTRATE 5 MG/5 ML VIAL IV ONE ×3 (23:03→23:13)
[2020-05-19] MEDS: INSULIN LISPRO 100 UNIT/ML SUBCUT SCH ×5 (00:23→23:12)
[2020-05-19] MEDS: NOREPINEPHRINE 16 MG in SODIUM CHLORIDE 0.9% 234 ML IV PRN ×2 (01:47→11:07)
[2020-05-19 04:21] LABS: Basophils % 0.2 % (0.0-0.8); Eosinophils # 0.3 10*3/uL (0.0-0.87); Hematocrit 23.3 VOL% (35.7-47.0); Hemoglobin 7.5 GM/DL (12.0-16.0); Immature Granulocytes Absolute 0.12 #; Lymphocytes # 1.2 10*3/uL (1.4-4.0); Lymphocytes % 9.5 % (21.3-54.2); Mean Corpuscular HGB Conc 32.2 GM/DL (32-36); Mean Corpuscular Volume 93.6 FL (87-102); Mean Platelet Volume 10.9 FL (9.6-12.0); Monocytes % 7.5 % (1.7-12.7); Neutrophils % 79.8 % (38.7-73.9); Platelet Count 132 T/CUMM (130-400); Red Blood Count 2.49 MC/CUMM (3.8-5.5); Red Cell Distribution Width 16.1 % (9.3-17.3); White Blood Count 12.2 T/CUMM (4-12)
[2020-05-19 04:37] LABS: Calcium 6.9 MG/DL (8.5-10.1); Osmolality,Calculated 285.7 MOS/KG (273-304); Potassium 3.6 MMOL/L (3.5-5.1)
[2020-05-19 04:39] LABS: Eosinophils 1 % (0-10); Lymphocytes 5 % (20-55); Segmented Neutrophils 86 % (50-85); Total Cells Counted 100
[2020-05-19 04:40] LABS: Burr Cells Slight; Hypochromasia 1+; Microcytosis 1+; Ovalocytes Slight; Platelet Estimate Adequate
[2020-05-19 04:41] LABS: ABG HCO3 25.3 MMOL/L (20-26); ABG PCO2 33.7 MM HG (35-48); ABG PH 7.466 (7.35-7.45); ABG TCO2 21.8 MMOL/L (23-27)
[2020-05-19] MEDS: LEVOTHYROXINE 50 MCG TABLET PO SCH (06:11)
[2020-05-19] MEDS: levETIRAcetam 500 MG TABLET PO SCH (08:32)
[2020-05-19] MEDS: traZODone 50 MG TABLET PO SCH ×2 (08:32→20:15)
[2020-05-19] MEDS: carvediloL 6.25 MG TABLET PO SCH ×2 (08:32→16:10)
[2020-05-19] MEDS: FOLIC ACID 1 MG TABLET PO SCH (08:32)
[2020-05-19] MEDS: MULTIVITAMIN (BEROCCA) TABLET PO SCH (08:32)
[2020-05-19] MEDS: MEGESTROL 400 MG/10 ML UDCUP PO SCH ×2 (08:33→20:15)
[2020-05-19] MEDS: PANTOPRAZOLE 40 MG VIAL IV SCH ×2 (08:33→20:15)
[2020-05-19] MEDS: ATORVASTATIN 10 MG TABLET PO SCH (08:33)
[2020-05-19] MEDS: LEVOFLOXACIN 500 MG TABLET PER TUBE SCH (08:51)
[2020-05-19] MEDS: MIDAZOLAM 100 MG in SODIUM CHLORIDE 0.9% 80 ML IV PRN (11:00)
[2020-05-19] MEDS: levETIRAcetam 250 MG TABLET PO SCH (20:15)
[2020-05-19] MEDS: MIRTAZAPINE 15 MG TABLET PO SCH (20:15)
[2020-05-19] MEDS: LOSARTAN 50 MG TABLET PO SCH (20:15)
[2020-05-20 04:24] LABS: Basophils % 0.2 % (0.0-0.8); Eosinophils # 0.3 10*3/uL (0.0-0.87); Eosinophils % 3.2 % (0.00-10.9); Hematocrit 20.6 VOL% (35.7-47.0); Hemoglobin 6.9 GM/DL (12.0-16.0); Immature Granulocytes % 0.4 %; Immature Granulocytes Absolute 0.03 #; Lymphocytes # 1.1 10*3/uL (1.4-4.0); Lymphocytes % 13.7 % (21.3-54.2); Mean Corpuscular HGB Conc 33.5 GM/DL (32-36); Mean Corpuscular Volume 89.6 FL (87-102); Mean Platelet Volume 10.4 FL (9.6-12.0); Monocytes % 7.8 % (1.7-12.7); Neutrophils % 74.7 % (38.7-73.9); Red Cell Distribution Width 15.7 % (9.3-17.3); White Blood Count 8.1 T/CUMM (4-12)
[2020-05-20 04:27] LABS: ABG Base Excess 0.3 MMOL/L (-2.5-2.5); ABG HCO3 24.8 MMOL/L (20-26); ABG Oxygen Saturation 99.6 % (95-100); ABG PCO2 32.1 MM HG (35-48); ABG PH 7.475 (7.35-7.45); ABG TCO2 22.2 MMOL/L (23-27)
[2020-05-20 04:42] LABS: Calcium 7.1 MG/DL (8.5-10.1); Osmolality,Calculated 286.4 MOS/KG (273-304); Potassium 3.5 MMOL/L (3.5-5.1)
[2020-05-20 04:48] LABS: Platelet Count 102 T/CUMM (130-400)
[2020-05-20 05:24] LABS: Hypochromasia 2+; Platelet Estimate Decreased
[2020-05-20 05:25] LABS: Microcytosis 1+
[2020-05-20] MEDS: INSULIN LISPRO 100 UNIT/ML SUBCUT SCH ×4 (05:39→23:19)
[2020-05-20] MEDS: LEVOTHYROXINE 50 MCG TABLET PO SCH (05:59)
[2020-05-20 07:03] LABS: Albumin 1.7 G/DL (3.4-5.0); Bilirubin,Direct 0.16 MG/DL (0.0-0.20); Bilirubin,Indirect 0.3 MG/DL (0.0-1.0); Bilirubin,Total 0.5 MG/DL (0.2-1.0); Total Protein 4.6 G/DL (5.0-7.5)
[2020-05-20] MEDS: ATORVASTATIN 10 MG TABLET PO SCH (09:23)
[2020-05-20] MEDS: MULTIVITAMIN (BEROCCA) TABLET PO SCH (09:23)
[2020-05-20] MEDS: carvediloL 6.25 MG TABLET PO SCH ×2 (09:23→18:15)
[2020-05-20] MEDS: PANTOPRAZOLE 40 MG VIAL IV SCH ×2 (09:23→21:03)
[2020-05-20] MEDS: traZODone 50 MG TABLET PO SCH ×2 (09:23→21:02)
[2020-05-20] MEDS: levETIRAcetam 500 MG TABLET PO SCH (09:23)
[2020-05-20] MEDS: MEGESTROL 400 MG/10 ML UDCUP PO SCH ×2 (09:23→21:02)
[2020-05-20] MEDS: FOLIC ACID 1 MG TABLET PO SCH (09:23)
[2020-05-20] MEDS ORDERED: SODIUM CHLORIDE 0.9% 1,000 ML IV PRN (09:33)
[2020-05-20] MEDS: MIDAZOLAM 100 MG in SODIUM CHLORIDE 0.9% 80 ML IV PRN (20:30)
[2020-05-20] MEDS: MIRTAZAPINE 15 MG TABLET PO SCH (21:02)
[2020-05-20] MEDS: LOSARTAN 50 MG TABLET PO SCH (21:02)
[2020-05-20] MEDS: levETIRAcetam 250 MG TABLET PO SCH (21:02)
[2020-05-21 04:30] LABS: ABG Base Excess 5.4 MMOL/L (-2.5-2.5); ABG HCO3 27.9 MMOL/L (20-26); ABG Oxygen Saturation 98.5 % (95-100); ABG PCO2 33.1 MM HG (35-48); ABG PH 7.544 (7.35-7.45); ABG PO2 113.4 MM HG (80-95); ABG TCO2 28.9 MMOL/L (23-27)
[2020-05-21 04:40] LABS: Basophils % 0.3 % (0.0-0.8); Eosinophils # 0.2 10*3/uL (0.0-0.87); Eosinophils % 2.8 % (0.00-10.9); Hematocrit 26.3 VOL% (35.7-47.0); Immature Granulocytes % 0.7 %; Immature Granulocytes Absolute 0.05 #; Lymphocytes % 14.6 % (21.3-54.2); Mean Corpuscular HGB Conc 33.1 GM/DL (32-36); Mean Corpuscular Volume 90.1 FL (87-102); Mean Platelet Volume 10.3 FL (9.6-12.0); Monocytes % 8.4 % (1.7-12.7); Neutrophils % 73.2 % (38.7-73.9); Platelet Count 100 T/CUMM (130-400); Red Blood Count 2.92 MC/CUMM (3.8-5.5); Red Cell Distribution Width 15.4 % (9.3-17.3); White Blood Count 6.8 T/CUMM (4-12)
[2020-05-21 04:43] LABS: Hemoglobin 8.7 GM/DL (12.0-16.0)
[2020-05-21 05:03] LABS: Hypochromasia 2+; Microcytosis 1+; Platelet Estimate Decreased
[2020-05-21 05:21] LABS: Calcium 7.3 MG/DL (8.5-10.1); Osmolality,Calculated 284.3 MOS/KG (273-304); Potassium 3.1 MMOL/L (3.5-5.1)
[2020-05-21] MEDS: INSULIN LISPRO 100 UNIT/ML SUBCUT SCH ×3 (06:10→17:26)
[2020-05-21] MEDS: LEVOTHYROXINE 50 MCG TABLET PO SCH (06:12)
[2020-05-21] MEDS: MULTIVITAMIN (BEROCCA) TABLET PO SCH (08:52)
[2020-05-21] MEDS: ATORVASTATIN 10 MG TABLET PO SCH (08:52)
[2020-05-21] MEDS: levETIRAcetam 500 MG TABLET PO SCH (08:52)
[2020-05-21] MEDS: carvediloL 6.25 MG TABLET PO SCH ×2 (08:52→16:51)
[2020-05-21] MEDS: FOLIC ACID 1 MG TABLET PO SCH (08:52)
[2020-05-21] MEDS: LEVOFLOXACIN 500 MG TABLET PER TUBE SCH (08:53)
[2020-05-21] MEDS: traZODone 50 MG TABLET PO SCH ×2 (08:53→21:06)
[2020-05-21] MEDS: MEGESTROL 400 MG/10 ML UDCUP PO SCH ×2 (08:53→21:06)
[2020-05-21] MEDS: PANTOPRAZOLE 40 MG VIAL IV SCH ×2 (08:54→21:06)
[2020-05-21] MEDS: DIGOXIN 0.125 MG TABLET PO SCH (13:19)
[2020-05-21] MEDS: MIRTAZAPINE 15 MG TABLET PO SCH (21:06)
[2020-05-21] MEDS: levETIRAcetam 250 MG TABLET PO SCH (21:06)
[2020-05-21] MEDS: LOSARTAN 50 MG TABLET PO SCH (21:06)
[2020-05-22] MEDS: INSULIN LISPRO 100 UNIT/ML SUBCUT SCH ×4 (00:34→18:17)
[2020-05-22 04:43] LABS: Basophils % 0.2 % (0.0-0.8); Eosinophils # 0.2 10*3/uL (0.0-0.87); Eosinophils % 4.3 % (0.00-10.9); Hematocrit 25.9 VOL% (35.7-47.0); Hemoglobin 8.8 GM/DL (12.0-16.0); Immature Granulocytes % 1.3 %; Immature Granulocytes Absolute 0.07 #; Mean Corpuscular Volume 88.7 FL (87-102); Mean Platelet Volume 10.7 FL (9.6-12.0); Monocytes % 9.8 % (1.7-12.7); Neutrophils % 67.4 % (38.7-73.9); Platelet Count 111 T/CUMM (130-400); Red Blood Count 2.92 MC/CUMM (3.8-5.5); Red Cell Distribution Width 15.1 % (9.3-17.3); White Blood Count 5.6 T/CUMM (4-12)
[2020-05-22 05:12] LABS: Calcium 7.5 MG/DL (8.5-10.1); Osmolality,Calculated 281.7 MOS/KG (273-304); Potassium 3.8 MMOL/L (3.5-5.1)
[2020-05-22 05:17] LABS: Troponin I < 0.015 NG/ML (0.00-0.045)
[2020-05-22] MEDS: LEVOTHYROXINE 50 MCG TABLET PO SCH (06:02)
[2020-05-22 06:34] LABS: ABG Base Excess 4.5 MMOL/L (-2.5-2.5); ABG HCO3 27.5 MMOL/L (20-26); ABG Oxygen Saturation 98.4 % (95-100); ABG PCO2 34.8 MM HG (35-48); ABG PH 7.516 (7.35-7.45); ABG PO2 136.7 MM HG (80-95); ABG TCO2 28.6 MMOL/L (23-27)
[2020-05-22] MEDS: PANTOPRAZOLE 40 MG VIAL IV SCH ×2 (08:49→20:15)
[2020-05-22] MEDS: ATORVASTATIN 10 MG TABLET PO SCH (08:49)
[2020-05-22] MEDS: FOLIC ACID 1 MG TABLET PO SCH (08:49)
[2020-05-22] MEDS: carvediloL 6.25 MG TABLET PO SCH ×2 (08:49→17:38)
[2020-05-22] MEDS: traZODone 50 MG TABLET PO SCH ×2 (08:49→20:14)
[2020-05-22] MEDS: MEGESTROL 400 MG/10 ML UDCUP PO SCH ×2 (08:49→20:14)
[2020-05-22] MEDS: MULTIVITAMIN (BEROCCA) TABLET PO SCH (08:49)
[2020-05-22] MEDS: levETIRAcetam 500 MG TABLET PO SCH (08:49)
[2020-05-22] MEDS: levETIRAcetam 250 MG TABLET PO SCH (20:14)
[2020-05-22] MEDS: LOSARTAN 50 MG TABLET PO SCH (20:14)
[2020-05-22] MEDS: MIRTAZAPINE 15 MG TABLET PO SCH (20:14)
[2020-05-23] MEDS: INSULIN LISPRO 100 UNIT/ML SUBCUT SCH ×5 (00:57→23:45)
[2020-05-23 03:21] LABS: ABG Base Excess 4.6 MMOL/L (-2.5-2.5); ABG HCO3 27.8 MMOL/L (20-26); ABG Oxygen Saturation 98.3 % (95-100); ABG PCO2 35.7 MM HG (35-48); ABG TCO2 28.9 MMOL/L (23-27)
[2020-05-23 04:13] LABS: Basophils % 0.5 % (0.0-0.8); Eosinophils # 0.2 10*3/uL (0.0-0.87); Eosinophils % 5.6 % (0.00-10.9); Hematocrit 23.8 VOL% (35.7-47.0); Immature Granulocytes % 1.6 %; Immature Granulocytes Absolute 0.07 #; Lymphocytes # 0.8 10*3/uL (1.4-4.0); Lymphocytes % 18.5 % (21.3-54.2); Mean Corpuscular HGB Conc 33.6 GM/DL (32-36); Mean Corpuscular Volume 90.2 FL (87-102); Mean Platelet Volume 10.1 FL (9.6-12.0); Monocytes % 9.8 % (1.7-12.7); Platelet Count 113 T/CUMM (130-400); Red Blood Count 2.64 MC/CUMM (3.8-5.5); Red Cell Distribution Width 15.1 % (9.3-17.3); White Blood Count 4.3 T/CUMM (4-12)
[2020-05-23 04:48] LABS: Alanine Aminotransferase 22 U/L (13-56); Albumin 1.5 G/DL (3.4-5.0); Alkaline Phosphatase 61 U/L (45-117); Aspartate Amino Transferase 22 U/L (0-37); Blood Urea Nitrogen 47 MG/DL (7-18); Calcium 7.9 MG/DL (8.5-10.1); Carbon Dioxide 27 MMOL/L (21-32); Estimated Glom Filtration Rate 7 ML/MIN; Glucose 98 MG/DL (74-106); Potassium 3.7 MMOL/L (3.5-5.1); Sodium 136 MMOL/L (136-145); Total Protein 5.1 G/DL (5.0-7.5); Troponin I < 0.015 NG/ML (0.00-0.045)
[2020-05-23] MEDS: LEVOTHYROXINE 50 MCG TABLET PO SCH (05:46)
[2020-05-23] MEDS ORDERED: DIGOXIN 0.25 MG TABLET PER TUBE ONE (08:00)
[2020-05-23] MEDS: PANTOPRAZOLE 40 MG VIAL IV SCH ×2 (08:30→22:08)
[2020-05-23] MEDS: traZODone 50 MG TABLET PO SCH ×2 (08:31→22:06)
[2020-05-23] MEDS: levETIRAcetam 500 MG TABLET PO SCH (08:31)
[2020-05-23] MEDS: LEVOFLOXACIN 500 MG TABLET PER TUBE SCH (08:31)
[2020-05-23] MEDS: FOLIC ACID 1 MG TABLET PO SCH (08:31)
[2020-05-23] MEDS: MEGESTROL 400 MG/10 ML UDCUP PO SCH ×2 (08:31→22:06)
[2020-05-23] MEDS: carvediloL 6.25 MG TABLET PO SCH ×2 (08:32→17:48)
[2020-05-23] MEDS: ATORVASTATIN 10 MG TABLET PO SCH (08:32)
[2020-05-23] MEDS: MULTIVITAMIN (BEROCCA) TABLET PO SCH (08:32)
[2020-05-23] MEDS: levETIRAcetam 250 MG TABLET PO SCH (22:06)
[2020-05-23] MEDS: LOSARTAN 50 MG TABLET PO SCH (22:06)
[2020-05-23] MEDS: MIRTAZAPINE 15 MG TABLET PO SCH (22:07)
[2020-05-23] MEDS: ACETAMINOPHEN 325 MG TABLET PO PRN (22:07)
[2020-05-24 04:25] LABS: ABG Base Excess 6.9 MMOL/L (-2.5-2.5); ABG HCO3 30.7 MMOL/L (20-26); ABG PCO2 36.1 MM HG (35-48); ABG PH 7.527 (7.35-7.45); ABG TCO2 27.4 MMOL/L (23-27); Allen Test Positive; Pt O2 Delivery Device Ventilator
[2020-05-24 04:58] LABS: Basophils % 0.2 % (0.0-0.8); Eosinophils # 0.2 10*3/uL (0.0-0.87); Eosinophils % 3.1 % (0.00-10.9); Hematocrit 24.3 VOL% (35.7-47.0); Immature Granulocytes Absolute 0.05 #; Lymphocytes # 0.7 10*3/uL (1.4-4.0); Lymphocytes % 14.3 % (21.3-54.2); Mean Corpuscular HGB Conc 32.9 GM/DL (32-36); Mean Corpuscular Volume 90.7 FL (87-102); Mean Platelet Volume 10.5 FL (9.6-12.0); Monocytes % 9.9 % (1.7-12.7); Neutrophils % 71.5 % (38.7-73.9); Platelet Count 100 T/CUMM (130-400); Red Blood Count 2.68 MC/CUMM (3.8-5.5); Red Cell Distribution Width 14.5 % (9.3-17.3); White Blood Count 4.8 T/CUMM (4-12)
[2020-05-24 05:05] LABS: Calcium 8.3 MG/DL (8.5-10.1); Osmolality,Calculated 282.7 MOS/KG (273-304); Potassium 3.7 MMOL/L (3.5-5.1)
[2020-05-24 05:15] LABS: Hypochromasia 2+; Microcytosis 1+; Ovalocytes Slight; Platelet Estimate Decreased
[2020-05-24] MEDS: INSULIN LISPRO 100 UNIT/ML SUBCUT SCH ×4 (05:16→23:47)
[2020-05-24] MEDS: LEVOTHYROXINE 50 MCG TABLET PO SCH (05:38)
[2020-05-24] MEDS: PANTOPRAZOLE 40 MG VIAL IV SCH ×2 (08:13→20:44)
[2020-05-24] MEDS: MULTIVITAMIN (BEROCCA) TABLET PO SCH (08:13)
[2020-05-24] MEDS: MEGESTROL 400 MG/10 ML UDCUP PO SCH ×2 (08:13→20:42)
[2020-05-24] MEDS: FOLIC ACID 1 MG TABLET PO SCH (08:13)
[2020-05-24] MEDS: ATORVASTATIN 10 MG TABLET PO SCH (08:14)
[2020-05-24] MEDS: levETIRAcetam 500 MG TABLET PO SCH (08:14)
[2020-05-24] MEDS: carvediloL 6.25 MG TABLET PO SCH (08:14)
[2020-05-24] MEDS: carvediloL 12.5 MG TABLET PO SCH (16:46)
[2020-05-24] MEDS: LOSARTAN 50 MG TABLET PO SCH (20:42)
[2020-05-24] MEDS: levETIRAcetam 250 MG TABLET PO SCH (20:43)
[2020-05-25 03:28] LABS: Basophils % 0.2 % (0.0-0.8); Eosinophils # 0.2 10*3/uL (0.0-0.87); Eosinophils % 2.8 % (0.00-10.9); Hemoglobin 7.7 GM/DL (12.0-16.0); Immature Granulocytes % 0.8 %; Immature Granulocytes Absolute 0.05 #; Lymphocytes # 0.8 10*3/uL (1.4-4.0); Lymphocytes % 11.5 % (21.3-54.2); Mean Corpuscular HGB Conc 32.1 GM/DL (32-36); Mean Corpuscular Volume 92.7 FL (87-102); Mean Platelet Volume 10.2 FL (9.6-12.0); Monocytes % 8.1 % (1.7-12.7); Neutrophils % 76.6 % (38.7-73.9); Platelet Count 138 T/CUMM (130-400); Red Blood Count 2.59 MC/CUMM (3.8-5.5); Red Cell Distribution Width 14.5 % (9.3-17.3); White Blood Count 6.5 T/CUMM (4-12)
[2020-05-25 03:43] LABS: Calcium 8.4 MG/DL (8.5-10.1); Osmolality,Calculated 283.1 MOS/KG (273-304); Potassium 3.9 MMOL/L (3.5-5.1)
[2020-05-25 04:50] LABS: ABG Base Excess 6.1 MMOL/L (-2.5-2.5); ABG PCO2 36.5 MM HG (35-48); ABG PH 7.514 (7.35-7.45); ABG TCO2 27.2 MMOL/L (23-27); Allen Test Positive; Pt O2 Delivery Device Ventilator
[2020-05-25] MEDS: INSULIN LISPRO 100 UNIT/ML SUBCUT SCH ×2 (05:26→17:42)
[2020-05-25] MEDS: LEVOTHYROXINE 50 MCG TABLET PO SCH (06:09)
[2020-05-25] MEDS: PANTOPRAZOLE 40 MG VIAL IV SCH ×2 (08:24→21:22)
[2020-05-25] MEDS: MEGESTROL 400 MG/10 ML UDCUP PO SCH ×2 (08:24→21:22)
[2020-05-25] MEDS: levETIRAcetam 500 MG TABLET PO SCH (08:24)
[2020-05-25] MEDS: MULTIVITAMIN (BEROCCA) TABLET PO SCH (08:24)
[2020-05-25] MEDS: LEVOFLOXACIN 500 MG TABLET PER TUBE SCH (08:24)
[2020-05-25] MEDS: FOLIC ACID 1 MG TABLET PO SCH (08:25)
[2020-05-25] MEDS: carvediloL 12.5 MG TABLET PO SCH ×2 (08:25→17:43)
[2020-05-25] MEDS: ATORVASTATIN 10 MG TABLET PO SCH (08:25)
[2020-05-25] MEDS: ALBUMIN 25% 25 GM in PREMIX 1 EACH IV SCH ×2 (17:42→17:43)
[2020-05-25] MEDS: LOSARTAN 50 MG TABLET PO SCH (21:22)
[2020-05-25] MEDS: levETIRAcetam 250 MG TABLET PO SCH (21:22)
[2020-05-25] MEDS: DIGOXIN 0.125 MG TABLET PO SCH (21:22)
[2020-05-26] MEDS: INSULIN LISPRO 100 UNIT/ML SUBCUT SCH ×3 (00:37→19:59)
[2020-05-26 03:37] LABS: ABG Base Excess 9.4 MMOL/L (-2.5-2.5); ABG HCO3 33.2 MMOL/L (20-26); ABG PCO2 38.9 MM HG (35-48); ABG PH 7.535 (7.35-7.45); ABG TCO2 30.9 MMOL/L (23-27)
[2020-05-26] MEDS: LEVOTHYROXINE 50 MCG TABLET PO SCH (06:41)
[2020-05-26 07:17] LABS: Basophils % 0.2 % (0.0-0.8); Eosinophils # 0.1 10*3/uL (0.0-0.87); Eosinophils % 1.4 % (0.00-10.9); Hematocrit 20.9 VOL% (35.7-47.0); Hemoglobin 6.8 GM/DL (12.0-16.0); Immature Granulocytes Absolute 0.06 #; Lymphocytes # 0.7 10*3/uL (1.4-4.0); Lymphocytes % 10.9 % (21.3-54.2); Mean Corpuscular HGB Conc 32.5 GM/DL (32-36); Mean Corpuscular Volume 92.1 FL (87-102); Mean Platelet Volume 10.3 FL (9.6-12.0); Monocytes % 9.1 % (1.7-12.7); Neutrophils % 77.4 % (38.7-73.9); Platelet Count 128 T/CUMM (130-400); Red Blood Count 2.27 MC/CUMM (3.8-5.5); Red Cell Distribution Width 14.5 % (9.3-17.3); White Blood Count 6.2 T/CUMM (4-12)
[2020-05-26 07:32] LABS: Calcium 8.2 MG/DL (8.5-10.1); Osmolality,Calculated 280.5 MOS/KG (273-304); Potassium 3.7 MMOL/L (3.5-5.1)
[2020-05-26 07:35] LABS: Hypochromasia 2+; Microcytosis 1+
[2020-05-26] MEDS: PANTOPRAZOLE 40 MG VIAL IV SCH ×2 (08:03→21:40)
[2020-05-26] MEDS: FOLIC ACID 1 MG TABLET PO SCH (08:03)
[2020-05-26] MEDS: MEGESTROL 400 MG/10 ML UDCUP PO SCH ×2 (08:03→21:51)
[2020-05-26] MEDS: levETIRAcetam 500 MG TABLET PO SCH (08:04)
[2020-05-26] MEDS: carvediloL 12.5 MG TABLET PO SCH ×3 (08:04→21:40)
[2020-05-26] MEDS: ATORVASTATIN 10 MG TABLET PO SCH (08:04)
[2020-05-26] MEDS: MULTIVITAMIN (BEROCCA) TABLET PO SCH (08:04)
[2020-05-26] MEDS ORDERED: ALBUMIN 25% 25 GM in PREMIX 1 EACH IV SCH (09:00)
[2020-05-26] MEDS ORDERED: methylPREDNISolone SOD SUC 125 MG/2 ML VIAL IV ONE (10:11)
[2020-05-26] MEDS ORDERED: ALBUTEROL/IPRATROPIUM 3 ML NEB RESP TX PRN (10:12)
[2020-05-26] MEDS ORDERED: RACEPINEPHRINE 0.5 ML NEB RESP TX STA (10:26)
[2020-05-26] MEDS ORDERED: ETOMIDATE 20 MG/10 ML VIAL IV ONE ×2 (10:37→10:39)
[2020-05-26] MEDS ORDERED: SUCCINYLCHOLINE 200 MG/10 ML VIAL ONE (10:37)
[2020-05-26] MEDS ORDERED: SUCCINYLCHOLINE 200 MG/10 ML VIAL IV ONE (10:39)
[2020-05-26] MEDS: ALBUTEROL/IPRATROPIUM 3 ML NEB RESP TX SCH ×2 (13:50→19:38)
[2020-05-26 15:02] LABS: ABG Base Excess 6.4 MMOL/L (-2.5-2.5); ABG HCO3 30.2 MMOL/L (20-26); ABG PCO2 37.4 MM HG (35-48); ABG PH 7.509 (7.35-7.45); ABG TCO2 26.9 MMOL/L (23-27); Allen Test Positive; Pt O2 Delivery Device Ventilator
[2020-05-26] MEDS ORDERED: SODIUM CHLORIDE 0.9% 1,000 ML IV PRN (16:54)
[2020-05-26] MEDS: methylPREDNISolone SOD SUC 40 MG/1 ML VIAL IV SCH (20:08)
[2020-05-26] MEDS ORDERED: ALBUMIN 25% 25 GM in PREMIX 1 EACH IV ONE (20:10)
[2020-05-26] MEDS: LOSARTAN 50 MG TABLET PO SCH (21:40)
[2020-05-26] MEDS: levETIRAcetam 250 MG TABLET PO SCH (21:40)
[2020-05-27] MEDS: INSULIN LISPRO 100 UNIT/ML SUBCUT SCH ×5 (00:01→23:55)
[2020-05-27] MEDS: ALBUTEROL/IPRATROPIUM 3 ML NEB RESP TX SCH ×4 (02:50→19:35)
[2020-05-27] MEDS: methylPREDNISolone SOD SUC 40 MG/1 ML VIAL IV SCH ×3 (03:05→18:00)
[2020-05-27 03:45] LABS: ABG Base Excess 4.7 MMOL/L (-2.5-2.5); ABG HCO3 28.7 MMOL/L (20-26); ABG Oxygen Saturation 99.3 % (95-100); ABG PCO2 35.9 MM HG (35-48); ABG PH 7.499 (7.35-7.45); ABG TCO2 24.8 MMOL/L (23-27); Allen Test Positive; Pt O2 Delivery Device Ventilator
[2020-05-27 05:08] LABS: Hematocrit 25.9 VOL% (35.7-47.0); Hemoglobin 8.5 GM/DL (12.0-16.0); Immature Granulocytes % 0.8 %; Immature Granulocytes Absolute 0.04 #; Lymphocytes # 0.6 10*3/uL (1.4-4.0); Lymphocytes % 11.9 % (21.3-54.2); Mean Corpuscular HGB Conc 32.8 GM/DL (32-36); Mean Corpuscular Volume 91.2 FL (87-102); Mean Platelet Volume 10.5 FL (9.6-12.0); Monocytes % 2.3 % (1.7-12.7); Platelet Count 124 T/CUMM (130-400); Red Blood Count 2.84 MC/CUMM (3.8-5.5); Red Cell Distribution Width 13.8 % (9.3-17.3); White Blood Count 5.1 T/CUMM (4-12)
[2020-05-27 05:31] LABS: Calcium 8.6 MG/DL (8.5-10.1)
[2020-05-27 05:37] LABS: Hypochromasia Slight; Microcytosis 1+
[2020-05-27 05:38] LABS: Ovalocytes Slight; Platelet Estimate Adequate
[2020-05-27] MEDS: LEVOTHYROXINE 50 MCG TABLET PO SCH (06:20)
[2020-05-27] MEDS: MULTIVITAMIN (BEROCCA) TABLET PO SCH (09:06)
[2020-05-27] MEDS: LEVOFLOXACIN 500 MG TABLET PER TUBE SCH (09:07)
[2020-05-27] MEDS: carvediloL 12.5 MG TABLET PO SCH ×2 (09:09→18:00)
[2020-05-27] MEDS: levETIRAcetam 500 MG TABLET PO SCH (09:11)
[2020-05-27] MEDS: ATORVASTATIN 10 MG TABLET PO SCH (09:11)
[2020-05-27] MEDS: FOLIC ACID 1 MG TABLET PO SCH (09:11)
[2020-05-27] MEDS: MEGESTROL 400 MG/10 ML UDCUP PO SCH ×2 (09:12→20:06)
[2020-05-27] MEDS: PANTOPRAZOLE 40 MG VIAL IV SCH ×2 (09:18→20:07)
[2020-05-27] MEDS: DIGOXIN 0.125 MG TABLET PO SCH (20:06)
[2020-05-27] MEDS: LOSARTAN 50 MG TABLET PO SCH (20:07)
[2020-05-27] MEDS: levETIRAcetam 250 MG TABLET PO SCH (20:07)
[2020-05-27] MEDS: ACETAMINOPHEN 325 MG TABLET PO PRN (23:15)
[2020-05-28] MEDS: ALBUTEROL/IPRATROPIUM 3 ML NEB RESP TX SCH ×4 (00:21→20:25)
[2020-05-28] MEDS: methylPREDNISolone SOD SUC 40 MG/1 ML VIAL IV SCH ×3 (01:36→17:28)
[2020-05-28 04:29] LABS: ABG PH 7.572 (7.35-7.45); ABG PO2 157.5 MM HG (80-95); ABG TCO2 27.9 MMOL/L (23-27); Allen Test Positive; Pt O2 Delivery Device Ventilator
[2020-05-28 05:04] LABS: Hematocrit 25.9 VOL% (35.7-47.0); Hemoglobin 8.8 GM/DL (12.0-16.0); Immature Granulocytes % 0.5 %; Immature Granulocytes Absolute 0.03 #; Lymphocytes # 0.5 10*3/uL (1.4-4.0); Lymphocytes % 8.7 % (21.3-54.2); Mean Corpuscular Volume 88.4 FL (87-102); Neutrophils % 86.8 % (38.7-73.9); Platelet Count 166 T/CUMM (130-400); Red Blood Count 2.93 MC/CUMM (3.8-5.5); Red Cell Distribution Width 13.9 % (9.3-17.3); White Blood Count 5.5 T/CUMM (4-12)
[2020-05-28 05:24] LABS: Osmolality,Calculated 288.8 MOS/KG (273-304); Potassium 3.8 MMOL/L (3.5-5.1)
[2020-05-28] MEDS: INSULIN LISPRO 100 UNIT/ML SUBCUT SCH ×3 (05:45→17:29)
[2020-05-28] MEDS: LEVOTHYROXINE 50 MCG TABLET PO SCH (05:46)
[2020-05-28] MEDS: PANTOPRAZOLE 40 MG VIAL IV SCH ×2 (09:00→20:04)
[2020-05-28] MEDS: MULTIVITAMIN (BEROCCA) TABLET PO SCH (09:02)
[2020-05-28] MEDS: ATORVASTATIN 10 MG TABLET PO SCH (09:02)
[2020-05-28] MEDS: MEGESTROL 400 MG/10 ML UDCUP PO SCH ×2 (09:02→20:04)
[2020-05-28] MEDS: carvediloL 12.5 MG TABLET PO SCH ×2 (09:03→17:28)
[2020-05-28] MEDS: FOLIC ACID 1 MG TABLET PO SCH (09:03)
[2020-05-28] MEDS: levETIRAcetam 500 MG TABLET PO SCH (09:03)
[2020-05-28] MEDS: BUDESONIDE 0.5 MG/2 ML NEB RESP TX SCH ×2 (13:29→20:25)
[2020-05-28 13:43] LABS: ABG Base Excess 4.6 MMOL/L (-2.5-2.5); ABG HCO3 28.6 MMOL/L (20-26); ABG Oxygen Saturation 99.9 % (95-100); ABG PCO2 35.3 MM HG (35-48); ABG PH 7.505 (7.35-7.45); ABG TCO2 25.7 MMOL/L (23-27)
[2020-05-28] MEDS: LOSARTAN 50 MG TABLET PO SCH (20:04)
[2020-05-28] MEDS: levETIRAcetam 250 MG TABLET PO SCH (20:04)
[2020-05-29] MEDS: INSULIN LISPRO 100 UNIT/ML SUBCUT SCH ×4 (00:05→17:51)
[2020-05-29] MEDS ORDERED: ALBUTEROL 2.5 MG/3 ML NEB RESP TX ONE (01:48)
[2020-05-29] MEDS: ALBUTEROL/IPRATROPIUM 3 ML NEB RESP TX SCH ×4 (01:50→19:05)
[2020-05-29] MEDS: methylPREDNISolone SOD SUC 40 MG/1 ML VIAL IV SCH ×3 (02:10→16:40)
[2020-05-29 05:08] LABS: Hematocrit 25.9 VOL% (35.7-47.0); Hemoglobin 8.6 GM/DL (12.0-16.0); Immature Granulocytes % 0.4 %; Immature Granulocytes Absolute 0.02 #; Lymphocytes # 0.5 10*3/uL (1.4-4.0); Lymphocytes % 9.9 % (21.3-54.2); Mean Corpuscular HGB Conc 33.2 GM/DL (32-36); Mean Corpuscular Volume 90.6 FL (87-102); Mean Platelet Volume 9.9 FL (9.6-12.0); Monocytes % 4.6 % (1.7-12.7); Neutrophils % 85.1 % (38.7-73.9); Platelet Count 199 T/CUMM (130-400); Red Blood Count 2.86 MC/CUMM (3.8-5.5); Red Cell Distribution Width 13.6 % (9.3-17.3); White Blood Count 4.7 T/CUMM (4-12)
[2020-05-29 05:24] LABS: Calcium 7.8 MG/DL (8.5-10.1); Potassium 4.1 MMOL/L (3.5-5.1)
[2020-05-29] MEDS: LEVOTHYROXINE 50 MCG TABLET PO SCH (05:56)
[2020-05-29] MEDS: MEGESTROL 400 MG/10 ML UDCUP PO SCH ×2 (08:02→21:22)
[2020-05-29] MEDS: ATORVASTATIN 10 MG TABLET PO SCH (08:03)
[2020-05-29] MEDS: PANTOPRAZOLE 40 MG VIAL IV SCH ×2 (08:03→21:22)
[2020-05-29] MEDS: LEVOFLOXACIN 500 MG TABLET PER TUBE SCH (08:03)
[2020-05-29] MEDS: FOLIC ACID 1 MG TABLET PO SCH (08:04)
[2020-05-29] MEDS: MULTIVITAMIN (BEROCCA) TABLET PO SCH (08:04)
[2020-05-29] MEDS: ACETAMINOPHEN 325 MG TABLET PO PRN (08:04)
[2020-05-29] MEDS: levETIRAcetam 500 MG TABLET PO SCH (08:04)
[2020-05-29] MEDS: carvediloL 12.5 MG TABLET PO SCH ×2 (08:04→16:39)
[2020-05-29] MEDS: BUDESONIDE 0.5 MG/2 ML NEB RESP TX SCH ×2 (13:36→19:05)
[2020-05-29] MEDS: levETIRAcetam 250 MG TABLET PO SCH (21:22)
[2020-05-29] MEDS: LOSARTAN 50 MG TABLET PO SCH (21:22)
[2020-05-30] MEDS: INSULIN LISPRO 100 UNIT/ML SUBCUT SCH ×5 (00:49→23:30)
[2020-05-30] MEDS: methylPREDNISolone SOD SUC 40 MG/1 ML VIAL IV SCH ×3 (00:50→21:05)
[2020-05-30] MEDS: ALBUTEROL/IPRATROPIUM 3 ML NEB RESP TX SCH ×4 (01:49→20:06)
[2020-05-30 05:23] LABS: Calcium 7.4 MG/DL (8.5-10.1); Osmolality,Calculated 307.2 MOS/KG (273-304); Potassium 4.7 MMOL/L (3.5-5.1)
[2020-05-30] MEDS: LEVOTHYROXINE 50 MCG TABLET PO SCH (06:45)
[2020-05-30] MEDS: BUDESONIDE 0.5 MG/2 ML NEB RESP TX SCH ×2 (07:11→20:06)
[2020-05-30] MEDS: MEGESTROL 400 MG/10 ML UDCUP PO SCH ×2 (08:52→21:01)
[2020-05-30] MEDS: MULTIVITAMIN (BEROCCA) TABLET PO SCH (08:52)
[2020-05-30] MEDS: ATORVASTATIN 10 MG TABLET PO SCH (08:52)
[2020-05-30] MEDS: FOLIC ACID 1 MG TABLET PO SCH (08:52)
[2020-05-30] MEDS: levETIRAcetam 500 MG TABLET PO SCH (08:52)
[2020-05-30] MEDS: INSULIN NPH 100 UNIT/ML SUBCUT SCH (08:53)
[2020-05-30] MEDS: carvediloL 12.5 MG TABLET PO SCH ×2 (08:53→16:37)
[2020-05-30] MEDS ORDERED: PANTOPRAZOLE 40 MG TABLET PO SCH (09:00)
[2020-05-30] MEDS ORDERED: FAMOTIDINE 8 MG/ML 50 ML/BOTTLE PO SCH (09:19)
[2020-05-30] MEDS: CLINDAMYCIN INJ 600 MG in PREMIX 1 EACH IV SCH (15:55)
[2020-05-30] MEDS: DIGOXIN 0.125 MG TABLET PO SCH (21:01)
[2020-05-30] MEDS: LOSARTAN 50 MG TABLET PO SCH (21:02)
[2020-05-30] MEDS: levETIRAcetam 250 MG TABLET PO SCH (21:02)
[2020-05-30] MEDS: FAMOTIDINE 8 MG/ML 50 ML/BOTTLE PO SCH (21:50)
[2020-05-31] MEDS: CLINDAMYCIN INJ 600 MG in PREMIX 1 EACH IV SCH ×3 (00:22→15:00)
[2020-05-31] MEDS: ALBUTEROL/IPRATROPIUM 3 ML NEB RESP TX SCH ×4 (00:28→19:15)
[2020-05-31] MEDS: INSULIN LISPRO 100 UNIT/ML SUBCUT SCH ×3 (05:03→18:02)
[2020-05-31] MEDS: LEVOTHYROXINE 50 MCG TABLET PO SCH (05:03)
[2020-05-31 05:57] LABS: Hematocrit 29.4 VOL% (35.7-47.0); Hemoglobin 9.7 GM/DL (12.0-16.0); Immature Granulocytes % 0.5 %; Immature Granulocytes Absolute 0.02 #; Lymphocytes # 0.3 10*3/uL (1.4-4.0); Lymphocytes % 7.6 % (21.3-54.2); Mean Corpuscular Volume 90.5 FL (87-102); Mean Platelet Volume 10.2 FL (9.6-12.0); Monocytes % 5.7 % (1.7-12.7); Neutrophils % 86.2 % (38.7-73.9); Platelet Count 205 T/CUMM (130-400); Red Blood Count 3.25 MC/CUMM (3.8-5.5); Red Cell Distribution Width 13.1 % (9.3-17.3); White Blood Count 4.4 T/CUMM (4-12)
[2020-05-31 06:04] LABS: Calcium 7.4 MG/DL (8.5-10.1); Osmolality,Calculated 295.7 MOS/KG (273-304); Potassium 4.5 MMOL/L (3.5-5.1)
[2020-05-31] MEDS: methylPREDNISolone SOD SUC 40 MG/1 ML VIAL IV SCH ×2 (06:07→19:45)
[2020-05-31] MEDS: BUDESONIDE 0.5 MG/2 ML NEB RESP TX SCH ×2 (07:02→19:15)
[2020-05-31] MEDS ORDERED: ETOMIDATE 20 MG/10 ML VIAL IV ONE (09:20)
[2020-05-31] MEDS: INSULIN NPH 100 UNIT/ML SUBCUT SCH (10:38)
[2020-05-31] MEDS: MULTIVITAMIN (BEROCCA) TABLET PO SCH (10:40)
[2020-05-31] MEDS: MEGESTROL 400 MG/10 ML UDCUP PO SCH ×2 (10:40→20:44)
[2020-05-31] MEDS: carvediloL 12.5 MG TABLET PO SCH ×2 (10:40→17:43)
[2020-05-31] MEDS: FOLIC ACID 1 MG TABLET PO SCH (10:40)
[2020-05-31] MEDS: ATORVASTATIN 10 MG TABLET PO SCH (10:40)
[2020-05-31] MEDS: levETIRAcetam 500 MG TABLET PO SCH (10:40)
[2020-05-31] MEDS: levETIRAcetam 250 MG TABLET PO SCH (20:44)
[2020-05-31] MEDS: LOSARTAN 50 MG TABLET PO SCH (20:44)
[2020-05-31] MEDS: FAMOTIDINE 8 MG/ML 50 ML/BOTTLE PO SCH (20:51)
[2020-06-01] MEDS: CLINDAMYCIN INJ 600 MG in PREMIX 1 EACH IV SCH ×3 (00:26→18:52)
[2020-06-01] MEDS: INSULIN LISPRO 100 UNIT/ML SUBCUT SCH ×4 (00:28→18:56)
[2020-06-01] MEDS: ALBUTEROL/IPRATROPIUM 3 ML NEB RESP TX SCH ×4 (00:58→20:08)
[2020-06-01 04:19] LABS: Hematocrit 27.4 VOL% (35.7-47.0); Hemoglobin 9.4 GM/DL (12.0-16.0); Immature Granulocytes % 0.7 %; Immature Granulocytes Absolute 0.03 #; Lymphocytes # 0.3 10*3/uL (1.4-4.0); Lymphocytes % 7.4 % (21.3-54.2); Mean Corpuscular HGB Conc 34.3 GM/DL (32-36); Mean Corpuscular Volume 88.1 FL (87-102); Mean Platelet Volume 10.1 FL (9.6-12.0); Monocytes % 5.5 % (1.7-12.7); Neutrophils % 86.4 % (38.7-73.9); Platelet Count 174 T/CUMM (130-400); Red Blood Count 3.11 MC/CUMM (3.8-5.5); Red Cell Distribution Width 13.1 % (9.3-17.3); White Blood Count 4.6 T/CUMM (4-12)
[2020-06-01 04:37] LABS: Calcium 6.8 MG/DL (8.5-10.1); Osmolality,Calculated 306.7 MOS/KG (273-304); Potassium 4.9 MMOL/L (3.5-5.1)
[2020-06-01] MEDS: LEVOTHYROXINE 50 MCG TABLET PO SCH (06:04)
[2020-06-01] MEDS: methylPREDNISolone SOD SUC 40 MG/1 ML VIAL IV SCH ×2 (06:04→19:35)
[2020-06-01] MEDS: BUDESONIDE 0.5 MG/2 ML NEB RESP TX SCH ×2 (07:00→20:08)
[2020-06-01] MEDS ORDERED: propofoL 200 MG/20 ML VIAL IV ONE (07:44)
[2020-06-01] MEDS ORDERED: SODIUM CHLORIDE 0.9% 100 ML IV ONE (07:45)
[2020-06-01] MEDS ORDERED: LIDOCAINE 2% 5 ML VIAL ONE (07:45)
[2020-06-01] MEDS ORDERED: MIDAZOLAM 2 MG/2 ML VIAL ONE (07:45)
[2020-06-01] MEDS ORDERED: fentaNYL 100 MCG/2 ML VIAL ONE (07:45)
[2020-06-01] MEDS ORDERED: LIDOCAINE 1%/EPI INJ 20 ML VIAL ONE (07:59)
[2020-06-01] MEDS ORDERED: BUPIVACAINE MPF 0.25% 30 ML VIAL ONE (07:59)
[2020-06-01] MEDS ORDERED: HEPARIN 5,000 UNIT/1 ML VIAL ONE (07:59)
[2020-06-01] MEDS ORDERED: SODIUM CHLORIDE 0.9% 250 ML IV SCH (08:30)
[2020-06-01] MEDS ORDERED: CLINDAMYCIN INJ 50 ML IV ONE (08:53)
[2020-06-01] MEDS: INSULIN NPH 100 UNIT/ML SUBCUT SCH (10:00)
[2020-06-01] MEDS: carvediloL 12.5 MG TABLET PO SCH ×2 (11:21→18:56)
[2020-06-01] MEDS: MULTIVITAMIN (BEROCCA) TABLET PO SCH (11:22)
[2020-06-01] MEDS: FOLIC ACID 1 MG TABLET PO SCH (11:22)
[2020-06-01] MEDS: levETIRAcetam 500 MG TABLET PO SCH (11:22)
[2020-06-01] MEDS: ATORVASTATIN 10 MG TABLET PO SCH (11:22)
[2020-06-01] MEDS: MEGESTROL 400 MG/10 ML UDCUP PO SCH ×2 (11:23→21:28)
[2020-06-01] MEDS: levETIRAcetam 250 MG TABLET PO SCH (21:20)
[2020-06-01] MEDS: LOSARTAN 50 MG TABLET PO SCH (21:20)
[2020-06-01] MEDS: DIGOXIN 0.125 MG TABLET PO SCH (21:21)
[2020-06-01] MEDS: FAMOTIDINE 8 MG/ML 50 ML/BOTTLE PO SCH (21:28)
[2020-06-02] MEDS: CLINDAMYCIN INJ 600 MG in PREMIX 1 EACH IV SCH ×3 (00:19→16:47)
[2020-06-02] MEDS: INSULIN LISPRO 100 UNIT/ML SUBCUT SCH ×4 (00:22→17:10)
[2020-06-02] MEDS: ALBUTEROL/IPRATROPIUM 3 ML NEB RESP TX SCH ×4 (01:58→19:36)
[2020-06-02] MEDS: methylPREDNISolone SOD SUC 40 MG/1 ML VIAL IV SCH ×2 (06:00→18:05)
[2020-06-02] MEDS: LEVOTHYROXINE 50 MCG TABLET PO SCH (06:00)
[2020-06-02 06:07] LABS: Hematocrit 27.9 VOL% (35.7-47.0); Hemoglobin 9.7 GM/DL (12.0-16.0); Immature Granulocytes % 0.5 %; Immature Granulocytes Absolute 0.03 #; Lymphocytes # 0.5 10*3/uL (1.4-4.0); Lymphocytes % 8.2 % (21.3-54.2); Mean Corpuscular HGB Conc 34.8 GM/DL (32-36); Mean Platelet Volume 10.3 FL (9.6-12.0); Monocytes % 6.8 % (1.7-12.7); Neutrophils % 84.5 % (38.7-73.9); Platelet Count 162 T/CUMM (130-400); Red Blood Count 3.17 MC/CUMM (3.8-5.5); White Blood Count 5.7 T/CUMM (4-12)
[2020-06-02 06:34] LABS: Calcium 6.8 MG/DL (8.5-10.1); Osmolality,Calculated 290.1 MOS/KG (273-304); Potassium 4.1 MMOL/L (3.5-5.1)
[2020-06-02 06:35] LABS: Calcium 6.6 MG/DL (8.5-10.1); Osmolality,Calculated 295.7 MOS/KG (273-304); Potassium 4.2 MMOL/L (3.5-5.1)
[2020-06-02] MEDS: BUDESONIDE 0.5 MG/2 ML NEB RESP TX SCH ×2 (07:45→19:36)
[2020-06-02] MEDS: MEGESTROL 400 MG/10 ML UDCUP PO SCH ×2 (09:48→20:48)
[2020-06-02] MEDS: FOLIC ACID 1 MG TABLET PO SCH (09:48)
[2020-06-02] MEDS: levETIRAcetam 500 MG TABLET PO SCH (09:48)
[2020-06-02] MEDS: ATORVASTATIN 10 MG TABLET PO SCH (09:48)
[2020-06-02] MEDS: carvediloL 12.5 MG TABLET PO SCH ×2 (09:48→16:47)
[2020-06-02] MEDS: MULTIVITAMIN (BEROCCA) TABLET PO SCH (09:48)
[2020-06-02] MEDS: OMEPRAZOLE ODT 20 MG TABLET PER TUBE SCH ×2 (09:49→20:48)
[2020-06-02] MEDS: INSULIN NPH 100 UNIT/ML SUBCUT SCH (09:49)
[2020-06-02] MEDS ORDERED: ceFAZolin 1,000 MG in SYRINGE 1 EACH IV ONE (14:00)
[2020-06-02] MEDS: levETIRAcetam 250 MG TABLET PO SCH (20:48)
[2020-06-02] MEDS: LOSARTAN 50 MG TABLET PO SCH (20:48)
[2020-06-02] MEDS ORDERED: LORazepam 2 MG/1 ML VIAL IV ONE (21:29)
[2020-06-03] MEDS: ALBUTEROL/IPRATROPIUM 3 ML NEB RESP TX SCH ×2 (00:21→06:50)
[2020-06-03] MEDS: CLINDAMYCIN INJ 600 MG in PREMIX 1 EACH IV SCH ×2 (00:45→10:37)
[2020-06-03] MEDS: INSULIN LISPRO 100 UNIT/ML SUBCUT SCH ×2 (00:49→05:28)
[2020-06-03] MEDS: LEVOTHYROXINE 50 MCG TABLET PO SCH (05:29)
[2020-06-03] MEDS: methylPREDNISolone SOD SUC 40 MG/1 ML VIAL IV SCH (06:28)
[2020-06-03 06:41] LABS: INR 1.2; PT Patient Result 12.6 SECS (9.8-11.9)
[2020-06-03 06:43] LABS: Calcium 6.4 MG/DL (8.5-10.1); Osmolality,Calculated 295.2 MOS/KG (273-304); Potassium 4.4 MMOL/L (3.5-5.1)
[2020-06-03] MEDS: BUDESONIDE 0.5 MG/2 ML NEB RESP TX SCH (06:50)
[2020-06-03] MEDS ORDERED: ceFAZolin 1,000 MG in SYRINGE 1 EACH IV ONE (07:00)
[2020-06-03] MEDS ORDERED: SODIUM CHLORIDE 0.9% 500 ML IV SCH (07:00)
[2020-06-03] MEDS ORDERED: LIDOCAINE 2% 5 ML VIAL ONE (07:10)
[2020-06-03] MEDS ORDERED: propofoL 200 MG/20 ML VIAL IV ONE (07:10)
[2020-06-03] MEDS ORDERED: ETOMIDATE 20 MG/10 ML VIAL IV ONE (07:10)
[2020-06-03 08:22] VITALS: BP 174/61
[2020-06-03] MEDS: carvediloL 12.5 MG TABLET PO SCH (10:37)
[2020-06-03] MEDS: INSULIN NPH 100 UNIT/ML SUBCUT SCH (10:37)
[2020-06-03] MEDS: OMEPRAZOLE ODT 20 MG TABLET PER TUBE SCH (10:38)
[2020-06-03] MEDS: levETIRAcetam 500 MG TABLET PO SCH (10:38)
[2020-06-03] MEDS: MEGESTROL 400 MG/10 ML UDCUP PO SCH (10:38)
[2020-06-03] MEDS: FOLIC ACID 1 MG TABLET PO SCH (10:38)
[2020-06-03] MEDS: MULTIVITAMIN (BEROCCA) TABLET PO SCH (10:38)
== END 2020-06-03 12:30 | disposition expired | DRG 380 ==
LOC: EDUNIT# → EDBD → N.EDINP 18:27 → N.ED 18:27 → N.5E 22:37 → SUATTDRO 22:41 → N.5E 22:42 → N.ICU 05-16 23:09 → N.2E 05-30 19:02
PROVIDERS: ADMIT Internal Medicine; ATTEND Internal Medicine Nephrology
PROC: VAVDCFI (2020-06-01 08:47)
PROC: EGDWPEG (ICD-10-PCS; 2020-06-03 07:00)